=== PATIENT | male | born 1950 | race Caucasian/White ===

== ENCOUNTER 2017-09-01 18:13 | Inpatient (IN) | payer MEDICARE, BC ==
[2017-09-01 18:41] LABS: Hematocrit 46.9 % (42.0-52.0); Mean Platelet Volume 6.6 fL (7.4-10.4); White Blood Cell (WBC) Count 5.1 thou/uL (4.8-10.8)
[2017-09-01 18:58] LABS: Band 2 % (5-11); Neutrophil 71 % (42-75)
[2017-09-01 19:01] LABS: ALT (SGPT) 16 U/L (8-55); AST (SGOT) 16 U/L (5-34); Alkaline Phosphatase 91 U/L (40-150); Anion Gap 16 mmol/L (10-20); BUN (Urea Nitrogen) 19 mg/dL (8.4-25.7); Bilirubin, Total 0.7 mg/dL (0.2-1.2); Calc. Creatinine Clearance 0 mL/min (70-130); Calcium 9.8 mg/dL (7.8-10.44); Carbon Dioxide 23 mmol/L (23-31); Chloride 100 mmol/L (98-107); Estimated GFR-MDRD 45; Globulin 3.8 g/dL (2.4-3.5); Lipase Less than 4 U/L (8-78); Protein, Total 8.3 g/dL (5.8-8.1)
[2017-09-01 19:05] LABS: Troponin I Less than 0.010 ng/mL (< 0.028)
--- NOTE | 2017-09-01 19:37 | CT ---
CT HEAD NONCONTRAST 09/01/17 HISTORY: Slurred speech. Left sided weakness. FINDINGS: No comparison. There is no evidence of acute intracranial hemorrhage or infarct. The ventricles appea r normal in size, shape and position. There is no mass effect or shift of midline structures. The vis ualized paranasal sinuses remain well aerated. IMPRESSION: No acute intracranial abnormalities are demonstrated on noncontrast CT head. Findings were called to Dr. Cummings in the emergency department at 1836 hours. Code CR POS: [facility]
[2017-09-01 19:51] LABS: Bilirubin Negative (Negative); Blood, Urine Negative (Negative); Glucose, Urine (Dipstick) >=1000 mg/dL (Negative); Ketone, Urine Trace mg/dL (Negative); Nitrite Negative (Negative); Protein, Urine (Dipstick) 30 mg/dL (Neg-Trace)
[2017-09-01 19:52] LABS: Bacteria/HPF None Seen HPF (None Seen); Hyaline Casts/LPF 0-3 HYALINE CAST LPF (0-3 Hyaline); RBC/HPF None Seen HPF (0-3); Squamous Epithelial 0-3 HPF (0-3); WBC/HPF None Seen HPF (0-3)
[2017-09-01 20:00] LABS: Amphetamine Not Detected (NotDetected); Methadone Not Detected (NotDetected); Methamphetamine Not Detected (NotDetected)
[2017-09-01] MEDS ORDERED: Ondansetron ODT 4 MG TAB SL PRN (23:07)
[2017-09-01] MEDS ORDERED: Ondansetron HCl/PF 4 MG/2 ML Vial IVP PRN (23:07)
[2017-09-01] MEDS ORDERED: Acetaminophen 325 MG TAB PO PRN ×2 (23:07→23:08)
[2017-09-01] MEDS ORDERED: Milk Of Magnesia 30 ML UDCUP PO PRN (23:08)
[2017-09-01] MEDS ORDERED: Enoxaparin Sodium 30 MG/0.3 ML SYRINGE SC SCH (23:08)
[2017-09-01] MEDS ORDERED: Dextrose 50% Abboject 50 ML SYRINGE SLOW IVP PRN (23:08)
[2017-09-01] MEDS ORDERED: Ondansetron ODT 4 MG TAB PO PRN (23:08)
[2017-09-01] MEDS ORDERED: Dextrose 5% in Water 1,000 ML IV PRN (23:08)
[2017-09-01] MEDS ORDERED: HYDROcodone/Acetaminophen 5/325 mg Tablet PO PRN (23:08)
[2017-09-01] MEDS ORDERED: hydrALAZINE 20 MG/ML VIAL SLOW IVP PRN (23:08)
[2017-09-01] MEDS ORDERED: HYDROcodone/Acetaminophen 10/325 mg Tablet PO PRN (23:08)
[2017-09-02] MEDS: HumaLOG 300 UNITS/3 ML VIAL SC PRN (00:03)
[2017-09-02 02:16] VITALS: BMI 19.1
--- NOTE | 2017-09-02 03:14 | HP ---
DATE OF ADMISSION: 09/01/2017 TIME OF SERVICE: 2130 hours. CHIEF COMPLAINT: I think I had a stroke. HISTORY OF PRESENT ILLNESS: Mr. Blakely is an interesting 67-year-old gentleman with a history of chronic pancreatitis, diabetes, and chronic kidney disease 3, although he does not know about the chronic kidney disease prior to today, who presents to the emergency department with complaints of acute onset of slurred speech, right lower facial numbness, left arm weakness or numbness without weakness and discoordination of his left leg. He states he felt off balance, but had no vertigo or lightheadedness. It is felt like his lower right face was swollen, although it was more numb and tingly. He had no visual changes, no chest pain, difficulty breathing, no headaches. He presented to the emergency department for evaluation, drove himself. On my arrival, he was markedly improved and now is completely resolved. Specifically, states that his right jaw felt swollen and tingly, left arm was numb and tingling, and left leg I felt like it was not getting good signals from the brain and how to move. In the emergency department, he was given aspirin 81 mg x4, CT scan of the head was done. Blood pressure initially recorded 211/100, though I was told that was inaccurate, but systolic pressure was repeated were in the 170s to 160s. The patient stated his blood pressure usually in the low normal range with a normal heart rate. Currently, 117/73 at the time of my evaluation. Symptoms have resolved, his blood pressure is improved. He had no other current complaints. PAST MEDICAL HISTORY: 1. Chronic pancreatitis since he was 5 years old. 2. He has developed diabetes mellitus type 2 due to inadequate glucose production. 3. Review of the chart shows increased creatinine with a GFR somewhere in the mid 40s which translates to CKD 3. PAST SURGICAL HISTORY: Include, 1. Pancreatic pseudocyst and stent placement. 2. Cholecystectomy. 3. Tonsillectomy and adenoidectomy remotely. HOME MEDICATIONS: 1. Ramipril 10 mg p.o. q.a.m. 2. Aspirin 81 mg p.o. q.a.m. 3. Prevacid 30 mg p.o. q.a.m. ALLERGIES: CAFFEINE, CHOCOLATE FLAVOR, CODEINE, COMPAZINE, ALCOHOL, METFORMIN, and ORANGE, PINEAPPLE JUICE. FAMILY HISTORY: Negative for clotting or bleeding disorder. No premature coronary artery disease, no early strokes. No immune problems. SOCIAL HISTORY: Negative for habits x3 now. He did have a past history of tobacco use. Denies alcohol. REVIEW OF SYSTEMS: A 10-point review of systems was performed, negative for all other systems except as stated per HPI. PHYSICAL EXAMINATION: VITAL SIGNS: Temperature 97.4, pulse 63, blood pressure 117/73, respiratory rate 16, satting 98% on room air. GENERAL: He is awake. He is alert. He is oriented x3. He is a thin white male, appears to be in no acute distress. HEENT: Normocephalic, atraumatic. Pupils equal, round, reactive to light bilaterally, mucous membranes moist. There are no visible lesions. No thrush. NECK: Supple with no lymphadenopathy, JVD, or thyromegaly. He has normal carotid upstrokes without bruits. LUNGS: Clear. There are no wheezes, no rales or rhonchi. No prolonged expiratory phase. Good air movement. Symmetrical chest excursion. CARDIOVASCULAR: Normal S1 and S2. No S3 or S4. He has a regular rhythm and a normal rate. No audible murmurs. ABDOMEN: Soft and is nontender, nondistended, no masses, no organomegaly. EXTREMITIES: No cyanosis, no clubbing. No edema with 2+ peripheral pulses in the dorsalis pedis, posterior tibial, and radial arteries bilaterally. SKIN: Warm, moist, and well-perfused. He had no rashes, no lesions. MUSCULOSKELETAL: Normal to inspection. His large joints appear normal with no inflammation and no palpable effusions. NEUROLOGIC: Cranial nerves II-XII are grossly intact. He has normal speech pattern. He has 5/5 strength in all of his extremities. He has no dysdiadochokinesia and good control of his motion. He has no focal neurologic deficits. LABORATORY DATA: CMP shows sodium of 135, potassium 4.0, chloride 100, bicarbonate 23, BUN 19, creatinine 1.54 with an MDRD calculated GFR of 45 and glucose of 304. Liver functions are normal. CBC showed a white count of 5.1, hemoglobin 15.9, hematocrit of 46.9, platelet count 147. CK-MB is 1.5, troponin I was less than 0.010. Lipase was less than 4. Urinalysis: Glucose greater than 1000 and UDS was negative. RADIOGRAPHIC STUDIES: Had a brain CT that was negative for acute intracranial abnormalities. ASSESSMENT AND PLAN: 1. Possible transient ischemic attack: The patient also had a hypertension on presentation and his high blood pressure improved, his symptoms went away. So it could be transient ischemic attack, but may be in hypertensive encephalopathy. We will continue with ramipril, we will have p.r.n. hydralazine in case of pressure less than 170. The symptoms have completely resolved at this point. We get an MRI/MRA of the brain and intracranial vessels. We will get a carotid Doppler of his neck arteries. We will get a morning fasting lipid profile. We will get PT, ST and OT to evaluate the patient. We will continue the patient on aspirin, but increase to 325 mg daily. All studies are negative, likely discharge with outpatient followup. 2. Diabetes mellitus type 2, uncontrolled. Certainly adult onset, but the patient may be more like a type 1. He was on metformin before because of stomach cramping. We use sliding scale insulin. I suspect the patient will need a basal bolus dosing of insulin. The patient is hesitant to start any insulins, but he is allowable for correction right now. We will check hemoglobin A1c with morning labs. 3. Chronic kidney disease, 3: Creatinine 1.5. In looking back all of his labs had about the same value. His MDRD calculated GFR is 45 right now which puts him in stage 3 chronic kidney disease. The patient is already on ramipril. I suspect this is due to hypertension and/or diabetes effects. 4. Hypertension: The patient's ramipril for blood pressure, currently 117/73. He was initially recorded in the 211, I was told this was not accurate, recorded supposedly a valid values showed a systolic in the 160s to 70s on presentation. We will watch closely. The patient was placed in observation on the stroke unit. We will get studies as above and if negative, he will be able to go home in the morning. MTDD
[2017-09-02 04:56] LABS: #Eosinphils 0.2 thou/uL (0.0-0.7); #Lymphocytes 1.5 thou/uL (1.20-3.40); #Monocytes 0.3 thou/uL (0.11-0.59); #Neutrophils 3.3 thou/uL (1.40-6.50); %Basophils 0.7 % (0.0-1.0); %Eosinophils 2.9 % (0.0-10.0); %Lymphocytes 27.8 % (21.0-51.0); %Monocytes 6.1 % (0.0-10.0); Hematocrit 40.8 % (42.0-52.0); Mean Platelet Volume 6.2 fL (7.4-10.4); Red Blood Cell (RBC) Count 4.05 mill/uL (4.70-6.10); White Blood Cell (WBC) Count 5.3 thou/uL (4.8-10.8)
[2017-09-02 05:03] LABS: Hemoglobin A1c 11.6 % (4.0-6.0)
[2017-09-02 05:18] LABS: Anion Gap 7 mmol/L (10-20); BUN (Urea Nitrogen) 23 mg/dL (8.4-25.7); Calc. Creatinine Clearance 65 mL/min (70-130); Carbon Dioxide 28 mmol/L (23-31); Chloride 106 mmol/L (98-107); Cholesterol 150 mg/dl (< 200 Desired); Estimated GFR-MDRD 83; LDL Cholesterol, Calculated 90 mg/dL
--- NOTE | 2017-09-02 08:40 | ULT ---
BILATERAL CAROTID DUPLEX ULTRASOUND WITH SPECTRAL ANALYSIS AND COLOR FLOW EVALUATION: Date: 09/02/17 HISTORY: TIA. FINDINGS: Cerda scale, color flow, Doppler evaluation, and spectral analysis of the bilateral carotid arteries i s performed with 2D imaging. There is irregular scattered atherosclerotic plaque seen within the region of the right carotid bulb and proximal right internal carotid artery. No significant atherosclerotic plaque is seen in the left internal carotid artery. There is moderate (50-69%) stenosis involving the right internal carotid artery based on elevated pea k systolic velocity of 143.1 cm/second. The right ICA/CCA ratio is 1.5. There is less than 50% maximal stenosis in the left internal carotid artery based on a peak systolic velocity of 72.9 cm/second and an ICA/CCA ratio of 0.66. Antegrade flow is demonstrated in vertebral arteries bilaterally. IMPRESSION: 1. Moderate (50-69%) stenosis involving the right internal carotid artery. 2. No hemodynamically significant stenosis involving the left internal carotid artery. POS: [facility]
[2017-09-02] MEDS ORDERED: Ramipril 5 MG CAP PO SCH (09:00)
[2017-09-02] MEDS: Famotidine 20 MG TAB PO SCH (09:17)
[2017-09-02] MEDS: Aspirin 325 MG TAB PO SCH (09:17)
[2017-09-02] MEDS ORDERED: Ondansetron HCl/PF 4 MG/2 ML Vial SLOW IVP PRN (10:00)
--- NOTE | 2017-09-02 10:05 | PDOC.PN ---
- Subjective Encounter Start Date: 09/02/17 Encounter Start Time: 10:03 Subjective: neuro symptoms resolved, now with nausea, vomiting - Objective Resuscitation Status: Resuscitation Status FULL:Full Resuscitation MAR Reviewed: Yes Vital Signs & Weight: Vital Signs (12 hours) Temp Pulse Resp BP BP Pulse Ox 09/02/17 09:16 106/62 09/02/17 09:00 97.5 F L 63 15 09/02/17 08:56 97.5 F L 63 15 139/83 99 09/02/17 05:44 106/62 09/02/17 04:17 97.6 F 56 L 16 105/65 97 09/01/17 23:08 97.9 F 70 16 164/100 H 99 09/01/17 22:41 97.9 F 70 16 Weight Weight 126 lb 12.8 oz I&O: 09/01/17 09/02/17 09/03/17 06:59 06:59 06:59 Intake Total 240 Output Total 300 Balance -60 Result Diagrams: 09/02/17 04:23 09/02/17 04:23 Additional Labs: Accuchecks 09/02/17 09/01/17 06:10 23:56 POC Glucose 166 H 309 H Phys Exam - Physical Examination Constitutional: NAD Neck: no JVD Respiratory: clear to auscultation bilateral Cardiovascular: RRR, no significant murmur Gastrointestinal: soft, non-tender, positive bowel sounds Musculoskeletal: no edema Neurological: non-focal Dx/Plan (1) TIA (transient ischemic attack) Status: Acute (2) DM type 2 (diabetes mellitus, type 2) Status: Chronic Qualifiers: Diabetes mellitus complication status: without complication (3) Nausea & vomiting Code(s): R11.2 - NAUSEA WITH VOMITING, UNSPECIFIED Status: Acute Qualifiers: Vomiting type: unspecified Vomiting Intractability: intractable Qualified Code(s): R11.2 - Nausea with vomiting, unspecified (4) Chronic pancreatitis Code(s): K86.1 - OTHER CHRONIC PANCREATITIS Status: Acute - Plan phenergan iv for nausea, no improvement with zofran -: await neuro [id number] * .
[2017-09-02] MEDS: Promethazine HCl 25 MG/ML VIAL IM/IV PRN (10:32)
--- NOTE | 2017-09-02 16:49 | PDOC.EVN ---
Event Note - Event Note Event Note: MRI pos for infarct. neuro consult. PT/OT etc
--- NOTE | 2017-09-02 20:38 | MRI ---
BRAIN MRI WITHOUT CONTRAST: Date: 09/02/17 HISTORY: TIA. Right face, left arm and leg symptoms. Weakness and slurred speech. COMPARISON: None. TECHNIQUE: Brain MRI is performed without intravenous Gadolinium administration. Multisequential, multiplanar im aging is performed. FINDINGS: No hemorrhage on the axial gradient echo sequence. There is T2 and FLAIR hyperintensity involving the right guerra radiata extending into the right lent iform nucleus. There is associated restricted diffusion. Additional T2 and FLAIR white matter hyperin tensities are noted, without associated restricted diffusion. No midline shift. Basilar cisterns are patent. Brain volume is age-appropriate. Cortical saravia-white matter differentiation is preserved. Ventricles and sulci are patent and symmetric. Central arterial flow-voids are maintained. Calvarium has a normal marrow signal intensity. Midline brain parenchymal structures are unremarkable . Minimal mucosal thickening of the paranasal sinuses. Adequate mastoid air cell aeration. IMPRESSION: Right guerra radiata and right lentiform nucleus infarct. POS: [facility]
--- NOTE | 2017-09-02 20:43 | MRI ---
MR ANGIOGRAM OF THE BRAIN: Date: 09/02/17 HISTORY: Right-sided infarct. COMPARISON: None. TECHNIQUE: MR angiogram of the neck is performed in the axial plane utilizing 3D [id number] imaging. Maximum intensity projection images are submitted for interpretation. FINDINGS: There is symmetric flow-related in the distal cervical and intracranial internal carotid arteries. Anterior Circulation: There is symmetric flow-related signal in the A1 and M1 segments, as well as the proximal MCA branche s and proximal A2 segments. Posterior Circulation: The left vertebral artery is dominant. Left PICA artery origin appears to be unremarkable. Right PICA artery origin is difficult to appreciate. Both vertebral arteries supply a normal appearing basilar artery. Appropriate flow-related signal. The left P1 segment has appropriate flow-related signal. The right [employer] has a origin. No significant stenosis of the posterior circulation. IMPRESSION: Unremarkable MR angiogram of the [place]. POS: [facility]
--- NOTE | 2017-09-03 05:46 | CON ---
DATE OF CONSULTATION: 09/02/2017 REFERRING PROVIDER: Dr. Do Rodríguez. REASON FOR CONSULTATION: Acute stroke. HISTORY OF PRESENT ILLNESS: Mr. Blakely is a pleasant 67-year-old male who has been consul [facility] for evaluation of abnormal MRI of the brain. The patient reports that on yesterday around 6:00 p .m., he was getting ready to go to the [facility], he had ate his supper and after which he noticed a tin gling sensation in the left hand that was radiating up to the left shoulder. He also felt numbness i n that region. He tried to stand up and walk and noticed his left side was somewhat off balance. Th is prompted him to come to the emergency room. He reports that by the time that he is presented to [facility] ER, his symptoms had resolved. He did not have any headache, chest pain, palpitation, lightheaded ness, dizziness with this episode. He reports that after being admitted to the hospital, he did deve lop nausea, vomiting overnight. He states that he has a history of chronic pancreatitis and with his flare-up, he usually tends to have nausea and vomiting, which is not unusual for him. PAST MEDICAL HISTORY: Significant for chronic pancreatitis; diabetes; chronic kidney disease, stage 3. PAST SURGICAL HISTORY: Significant for pancreatic pseudocyst and stent placement, cholecystectomy, t onsillectomy and adenoidectomy. CURRENT MEDICATIONS: Please review MAR. ALLERGIES: Include CAFFEINE, ALCOHOL, CHOCOLATE FLAVOR, CODEINE, PINEAPPLE, PROCHLORPERAZINE. FAMILY HISTORY: Noncontributory. SOCIAL HISTORY: Denies smoking, alcohol use, or illicit drug use. REVIEW OF SYSTEMS: As mentioned above in the HPI, otherwise negative. PHYSICAL EXAMINATION: VITAL SIGNS: Blood pressure of 135/79, pulse of 54, temperature of 97.9, respirations of 16, O2 sats of 99% on room air. GENERAL: Well-developed, well-nourished male, in no apparent distress. RESPIRATORY: Clear to auscultation bilaterally. CARDIOVASCULAR: Regular rate and rhythm. NEUROLOGICAL: Mental status: The patient is awake, alert, oriented x3. Speech and language: Fluen t speech. Cranial nerves: Pupils are 3 mm and reactive. Visual genao are intact. External muscle s are intact. No nystagmus is noted. Face is symmetric. Tongue and uvula are midline. Motor exam showed normal tone and bulk with 5/5 strength in both upper and lower extremities. Sensory: Sensati on is intact and symmetric. Deep tendon reflexes 2+ reflexes in both upper and lower extremities. B abinski: Plantar responses flexion bilaterally. Coordination intact to [id number]-[id number] and finge r tapping bilaterally. LABORATORY DATA: Reviewed, which included CBC, BMP, hemoglobin A1c, urinalysis, urine drug screen, w hich is significant for hemoglobin 13.6, hematocrit of 40.8 with MCV of 101, glucose is 172 with hemo globin A1c of 11.6, otherwise unremarkable. IMAGING STUDIES: MRI brain without contrast was reviewed, which showed an acute ischemic infarct inv olving the right basal ganglia. IMPRESSION: 1. Acute right basal ganglia ischemic infarct. 2. Chronic pancreatitis. 3. Hypertension. ASSESSMENT AND PLAN: Mr. Blakely is a pleasant 67-year-old male who presented with the epi sode of left upper extremity tingling and difficulty with balance. His MRI does show an acute ischem ic infarct in the right basal ganglia. His carotid Dopplers also showed a right ICA stenosis with a 50% to 69% moderate stenosis. At this time, I would recommend increasing his aspirin to 325 mg daily for secondary stroke prevention. I would also recommend obtaining CT angiogram of the neck to [facility] evaluate the right ICA stenosis. If the stenosis is more than 60%, then I would recommend consult ing Cardiovascular Surgery for their opinion and recommendations. Continue supportive care. No furt her neurologic workup needed at this time. Thank you for your consultation.
[2017-09-03] MEDS: HumaLOG 300 UNITS/3 ML VIAL SC PRN ×4 (06:19→22:30)
[2017-09-03] MEDS ORDERED: ISOVUE-370 76%-LOCM 1 ML ONE (07:53)
[2017-09-03] MEDS: Aspirin 325 MG TAB PO SCH (09:13)
[2017-09-03] MEDS: Famotidine 20 MG TAB PO SCH (09:14)
[2017-09-03] MEDS: Ramipril 5 MG CAP PO SCH (09:15)
--- NOTE | 2017-09-03 10:03 | PDOC.PN ---
- Subjective Encounter Start Date: 09/03/17 Encounter Start Time: 10:01 Subjective: no weakness , etc - Objective MAR Reviewed: Yes Vital Signs & Weight: Vital Signs (12 hours) Temp Pulse Resp BP BP Pulse Ox 09/03/17 09:15 141/76 H 09/03/17 08:00 97.8 F 67 20 85/55 L 97 09/03/17 04:24 97.7 F 49 L 16 96/53 L 100 09/03/17 00:43 98.6 F 55 L 16 94/52 L 98 Weight Weight 130 lb 8 oz I&O: 09/02/17 09/03/17 09/04/17 06:59 06:59 06:59 Intake Total 240 Balance 240 Result Diagrams: 09/02/17 04:23 09/02/17 04:23 Additional Labs: Accuchecks 09/03/17 09/02/17 09/02/17 05:44 19:59 16:55 POC Glucose 202 H 265 H 172 H Phys Exam - Physical Examination Constitutional: NAD Neck: no JVD Respiratory: clear to auscultation bilateral Cardiovascular: RRR, no significant murmur Gastrointestinal: soft, non-tender, positive bowel sounds Musculoskeletal: no edema Neurological: non-focal, normal sensation, moves all 4 limbs Dx/Plan (1) TIA (transient ischemic attack) Status: Resolved (2) DM type 2 (diabetes mellitus, type 2) Status: Chronic Qualifiers: Diabetes mellitus complication status: without complication (3) Nausea & vomiting Code(s): R11.2 - NAUSEA WITH VOMITING, UNSPECIFIED Status: Acute Qualifiers: Vomiting type: unspecified Vomiting Intractability: intractable Qualified Code(s): R11.2 - Nausea with vomiting, unspecified (4) Chronic pancreatitis Code(s): K86.1 - OTHER CHRONIC PANCREATITIS Status: Acute (5) CVA (cerebral vascular accident) Code(s): I63.9 - CEREBRAL INFARCTION, UNSPECIFIED Status: Acute Qualifiers: CVA mechanism: thrombosis Laterality of affected vessel: unspecified (6) Carotid stenosis, right Code(s): I65.21 - OCCLUSION AND STENOSIS OF RIGHT CAROTID ARTERY Status: Acute - Plan CTA neck pending, cont ASA -: CTA neck, 50% stenosis R ICA * .
[2017-09-03] MEDS: Promethazine HCl 25 MG/ML VIAL IM/IV PRN (10:48)
--- NOTE | 2017-09-03 15:27 | CT ---
CT ANGIO NECK WITH CONTRAST: Technique: Multiple axial tomograms were obtained through the neck with arterial phase enhancement fo [facility] ([facility]) express angio protocol with multiplanar reconstruction and 3D post processing. History: Evaluate for right ICA stenosis. Recent ultrasound exam of 09-02-[address] enosis in the right ICA. FINDINGS: No evidence of stenosis at the origin of the arch vessels. The left common carotid are is unremarkable. The left carotid bifurcation is unremarkable. The left ICA is unremarkable throughout its course. Right common carotid is unremarkable. There is mild atherosclerotic change at the right bulb and proximal ICA. There is slight kink at the origin of the right ICA and there is focal stenosis at the origin of the right ICA. The diameter of s tenosis according to NASCET criteria is estimated at 50% diameter stenosis at the origin of the right ICA. The ICA above the origin is unremarkable. Vertebral arteries are patent and unremarkable. Visualized basilar artery is small in caliber but is patent. No soft tissue abnormality identified. IMPRESSION: 1. There is hemodynamically significant stenosis at the origin of the right internal carotid artery e stimated at approximately 50% diameter stenosis by NASCET criteria. POS: [facility]
[2017-09-03] MEDS ORDERED: Atorvastatin Calcium 10 MG TAB PO SCH (21:00)
[2017-09-04] MEDS: Promethazine HCl 25 MG/ML VIAL IM/IV PRN (00:29)
[2017-09-04] MEDS: HumaLOG 300 UNITS/3 ML VIAL SC PRN (06:34)
[2017-09-04 07:50] VITALS: BP 113/77; TEMP 98.3
[2017-09-04] MEDS: Ramipril 5 MG CAP PO SCH (09:00)
[2017-09-04] MEDS: Aspirin 325 MG TAB PO SCH (09:00)
[2017-09-04] MEDS: Famotidine 20 MG TAB PO SCH (09:00)
--- NOTE | 2017-09-04 09:10 | DIS ---
TRANSFER OF CARE NOTE DATE OF DISCHARGE: 09/04/2017 DISPOSITION: Discharged home. PRIMARY CARE PROVIDER: Dr. Stephanie Arceo FINAL DIAGNOSES: 1. Cerebral infarction with no residual. 2. Diabetes mellitus type 2. 3. Chronic kidney disease stage 3. 4. History of chronic pancreatitis. 5. Nausea and vomiting. 6. Stenosis, right internal carotid artery. DISCHARGE MEDICATIONS: Ramipril 10 mg a day, Prevacid 30 mg a day, aspirin 325 mg a day, Lipitor 10 mg a day. ALLERGIES: ALCOHOL, CAFFEINE, CHOCOLATE, CODEINE, PINEAPPLE, COMPAZINE. PENDING AT THE TIME OF DISCHARGE: Nothing. CODE STATUS: FULL. HOSPITAL COURSE: The patient admitted to the Hospitalist through [facility] wit h "I think I had a stroke". Complaints of slurred speech, right facial numbness, left arm weakness, all resolved rapidly. Neurological exam was rapidly intact. A brain CT was done which showed no acu te intracranial abnormality. Carotid ultrasound showed 50-70% stenosis. Brain MRI showed no [place] abnormality. Brain MRI showed a right guerra radiata and left lentiform nucleus infarct. The patient was started on aspirin and statins. A CT angiogram revealed 50% stenosis in the right in ternal carotid artery. The patient did well with PT, Speech Therapy O2, Occupational Therapy. At th is time, he is being discharged home as he is fully functional. He has been told to see his PCP in 1 week. He was seen in consultation by Dr. Mili Jarquin. He is being discharged on a heart healthy t, medications, as stated. He will need serial ultrasounds of his right internal carotid artery. Hi s laboratory during his stay; CBC was grossly normal. His initial creatinine was 1.54 came down to 0 .91. Cholesterol studies were really pretty unremarkable. Cholesterol 150, LDL 90, HDL low at 30 an d as stated before, he has been started on a statin.
== END 2017-09-04 10:23 | disposition home or self-care (01) | DRG 65 ==
LOC: ERS 18:13 → 2SE 21:01 → OBSVTOIN 09-02 16:45
PROVIDERS: ADMIT Internal Medicine Infectious Disease; ATTEND Internal Medicine Infectious Disease
DX: I63.9 Cerebral infarction, unspecified (principal); K86.1 Other chronic pancreatitis; E11.22 Type 2 diabetes mellitus with diabetic chronic kidney disease; N18.3 Chronic kidney disease, stage 3 (moderate); I12.9 Hypertensive chronic kidney disease with stage 1 through stage 4 chronic kidney disease, or unspecified chronic kidney disease; I65.21 Occlusion and stenosis of right carotid artery; G83.24 Monoplegia of upper limb affecting left nondominant side; R47.81 Slurred speech; R29.810 Facial weakness; R11.2 Nausea with vomiting, unspecified; Z87.891 Personal history of nicotine dependence; E11.65 Type 2 diabetes mellitus with hyperglycemia
CPT/HCPCS: 36415; 36416; 70450; 70498; 70544; 70551; 80048; 80053; 80061; 80306; 81003; 81015; 82553; 83036; 83690; 84484; 85025; 93005; 93880; 94760; A4216; G8978-GP-CK; G8979-GP-CK; G8980-GP-CK; G8987-GO-CH; G8988-GO-CH; G8989-GO-CH; G9162-GN-CH; G9163-GN-CH; J1650; J2405; J2550; Q0162

== ENCOUNTER 2017-09-23 09:52 | Emergency (ER) | payer MEDICARE, BC ==
[2017-09-23 10:56] LABS: #Eosinphils 0.1 thou/uL (0.0-0.7); #Lymphocytes 0.5 thou/uL (1.20-3.40); #Monocytes 0.2 thou/uL (0.11-0.59); #Neutrophils 2.2 thou/uL (1.40-6.50); %Basophils 0.8 % (0.0-1.0); %Eosinophils 3.2 % (0.0-10.0); %Lymphocytes 16.9 % (21.0-51.0); %Monocytes 6.4 % (0.0-10.0); Hematocrit 45.2 % (42.0-52.0); Mean Platelet Volume 6.2 fL (7.4-10.4)
[2017-09-23 11:21] LABS: ALT (SGPT) 49 U/L (8-55); AST (SGOT) 70 U/L (5-34); Alkaline Phosphatase 108 U/L (40-150); Anion Gap 14 mmol/L (10-20); BUN (Urea Nitrogen) 13 mg/dL (8.4-25.7); Bilirubin, Total 0.9 mg/dL (0.2-1.2); Calc. Creatinine Clearance 0 mL/min (70-130); Calcium 9.1 mg/dL (7.8-10.44); Carbon Dioxide 24 mmol/L (23-31); Chloride 103 mmol/L (98-107); Estimated GFR-MDRD 82; Globulin 3.6 g/dL (2.4-3.5); Lipase Less than 4 U/L (8-78); Protein, Total 7.6 g/dL (5.8-8.1)
[2017-09-23] MEDS ORDERED: Morphine 4 MG/ML VIAL ONE ×2 (12:19→12:23)
[2017-09-23] MEDS ORDERED: Ondansetron HCl/PF 4 MG/2 ML Vial ONE ×3 (12:19→13:45)
--- NOTE | 2017-09-23 14:10 | CT ---
ABDOMEN CT WITH CONTRAST PELVIC CT WITH CONTRAST: Date: 09/23/17 HISTORY: Abdominal pain. Symptoms began on Saturday night. History of hernia. COMPARISON: None. TECHNIQUE: An abdomen and pelvic CT are performed with IV contrast. Enteric contrast was not administered. Coron al reformatted images are submitted for interpretation. FINDINGS:: ABDOMEN CT: Chronic changes in lung bases. Heart size is within normal limits. No pericardial effusion. The desce nding thoracic aorta and abdominal aorta have an overall normal caliber. No periaortic fat stranding. Intra and extrahepatic portal vein is patent. Gallbladder is surgically absent. The liver, spleen, pancreas, and adrenal glands have appropriate enhancement and attenuation. No gastrohepatic, retrocrural, or periportal lymphadenopathy. No mesenteric mass, free air, or free fluid. There are some nonspecific, mildly enlarged central abdominal mesenteric lymph nodes. Width Stripper lymph node measures 1.2 x 0.9 cm. Symmetric enhancement of the kidneys. Bilaterally, no obstructive uropathy. Limited evaluation of the alimentary canal due to the absence of oral contrast administration. No evidence of small bowel obstruction. Ileocecal junction is normal. Appendix is not appreciated. No inflammation of the cecal apex. Fecal material in a nondistended, nondilated colon. Occasional diver ticulum in sigmoid colon. No diverticulitis. PELVICT CT: No mass, lymphadenopathy, free air, or free fluid. Urinary bladder is unremarkable. Left inguinal hernia containing mesenteric fat is noted. No lytic or blastic lesions in the osseous structures. IMPRESSION: 1. No acute abnormal in the abdomen or pelvis. No evidence of bowel obstruction. 2. Nonspecific enlarged mesenteric lymph nodes. Correlate for mesenteric lymphadenitis. 3. Diverticulosis in the sigmoid colon, without evidence of diverticulitis. POS: [facility]
[2017-09-23] MEDS ORDERED: Ondansetron ODT 4 MG TAB ONE (16:14)
[2017-09-23] MEDS ORDERED: ISOVUE-370 76%-LOCM 1 ML ONE (17:06)
== END 2017-09-23 17:07 | disposition home or self-care (01) ==
LOC: ERS 09:52
DX: R10.13 Epigastric pain (principal); E11.9 Type 2 diabetes mellitus without complications; Z86.73 Personal history of transient ischemic attack (TIA), and cerebral infarction without residual deficits; Z79.82 Long term (current) use of aspirin; Z79.899 Other long term (current) drug therapy
CPT/HCPCS: 36415; 36416; 74177; 80053; 83690; 85025; 94760; 96361; 96374; 96375; 96376; J2270; J2405; Q0162

== ENCOUNTER 2020-10-08 14:41 | Emergency (ER) | payer BC, MEDICARE ==
[2020-10-08] MEDS ORDERED: Morphine 4 MG/ML VIAL ONE ×2 (15:28→17:23)
[2020-10-08] MEDS ORDERED: Ondansetron PF 4 MG/2 ML Vial ONE (15:29)
[2020-10-08] MEDS ORDERED: Promethazine HCl 25 MG/ML VIAL ONE ×2 (15:29→17:23)
[2020-10-08 15:33] LABS: #Eosinphils 0.2 thou/uL (0.0-0.7); #Lymphocytes 1.1 thou/uL (1.20-3.40); #Monocytes 0.3 thou/uL (0.11-0.59); #Neutrophils 3.3 thou/uL (1.40-6.50); %Basophils 0.8 % (0.0-1.0); %Eosinophils 4.1 % (0.0-10.0); %Lymphocytes 22.2 % (21.0-51.0); %Monocytes 5.9 % (0.0-10.0); Hemoglobin 15.6 g/dL (14.0-18.0); Mean Corpuscular HGB CONC 35.2 g/dL (32.0-36.0); Mean Corpuscular Hemoglobin 35.9 pg (27.0-31.0); Mean Platelet Volume 6.4 fL (7.4-10.4); Platelet Count 147 thou/uL (130-400); RBC Distribution Width 12.3 % (11.5-14.5); Red Blood Cell (RBC) Count 4.33 mill/uL (4.70-6.10); White Blood Cell (WBC) Count 4.9 thou/uL (4.8-10.8)
--- NOTE | 2020-10-08 15:35 | RAD ---
Chest one view HISTORY: Chest pain. FINDINGS: Cardiac silhouette is magnified by projection. Pulmonary vasculature is unremarkable. Mediastinum is midline. No confluent airspace consolidation or evidence of pneumothorax. Hemostasis c lips overlie the upper abdomen. IMPRESSION : No abnormalities are demonstrated.
[2020-10-08 15:56] LABS: ALT (SGPT) 15 U/L (8-55); AST (SGOT) 14 U/L (5-34); Alkaline Phosphatase 75 U/L (40-110); Anion Gap 17 mmol/L (10-20); BUN (Urea Nitrogen) 20 mg/dL (8.4-25.7); Bilirubin, Total 1.3 mg/dL (0.2-1.2); Calc. Creatinine Clearance 0 mL/min (70-130); Calcium 9.3 mg/dL (7.8-10.44); Carbon Dioxide 27 mmol/L (23-31); Chloride 99 mmol/L (98-107); Globulin 3.5 g/dL (2.4-3.5); Glucose 143 mg/dL (80-115); Lipase Less than 4 U/L (8-78); Potassium 4.2 mmol/L (3.5-5.1); Protein, Total 7.5 g/dL (5.8-8.1); Sodium 139 mmol/L (136-145)
== END 2020-10-08 19:45 | disposition home or self-care (01) ==
LOC: ERS 14:41
DX: K29.70 Gastritis, unspecified, without bleeding (principal); E11.9 Type 2 diabetes mellitus without complications; Z86.73 Personal history of transient ischemic attack (TIA), and cerebral infarction without residual deficits; Z86.19 Personal history of other infectious and parasitic diseases; Z87.19 Personal history of other diseases of the digestive system
CPT/HCPCS: 36415; 71045; 80053; 83690; 84484; 85025; 93005; 96365; 96366; 96375; 96376; J2270; J2405; J2550

== ENCOUNTER 2020-10-18 15:13 | Inpatient (IN) | payer MEDICARE, BC ==
[~2020-10-18 15:13] MED LIST: Iopamidol-370 76% 500 ML 1 ML ONE
[2020-10-18 15:50] LABS: #Eosinphils 0.2 thou/uL (0.0-0.7); #Monocytes 0.3 thou/uL (0.11-0.59); #Neutrophils 4.3 thou/uL (1.40-6.50); %Basophils 0.7 % (0.0-1.0); %Eosinophils 3.4 % (0.0-10.0); %Monocytes 4.6 % (0.0-10.0); %Neutrophils 74.3 % (42.0-75.0); Hemoglobin 14.9 g/dL (14.0-18.0); Mean Corpuscular HGB CONC 35.1 g/dL (32.0-36.0); Mean Corpuscular Hemoglobin 35.5 pg (27.0-31.0); Mean Platelet Volume 6.6 fL (7.4-10.4); Platelet Count 162 thou/uL (130-400); RBC Distribution Width 12.1 % (11.5-14.5); Red Blood Cell (RBC) Count 4.19 mill/uL (4.70-6.10); White Blood Cell (WBC) Count 5.8 thou/uL (4.8-10.8)
[2020-10-18 16:16] LABS: ALT (SGPT) 21 U/L (8-55); AST (SGOT) 20 U/L (5-34); Albumin 4.1 g/dL (3.4-4.8); Alkaline Phosphatase 77 U/L (40-110); Anion Gap 15 mmol/L (10-20); BUN (Urea Nitrogen) 19 mg/dL (8.4-25.7); Bilirubin, Total 1.1 mg/dL (0.2-1.2); Calc. Creatinine Clearance 0 mL/min (70-130); Calcium 9.2 mg/dL (7.8-10.44); Carbon Dioxide 29 mmol/L (23-31); Chloride 98 mmol/L (98-107); Globulin 3.4 g/dL (2.4-3.5); Glucose 219 mg/dL (80-115); Lipase Less than 4 U/L (8-78); Potassium 4.7 mmol/L (3.5-5.1); Protein, Total 7.5 g/dL (5.8-8.1); Sodium 137 mmol/L (136-145)
[2020-10-18] MEDS ORDERED: Morphine 4 MG/ML VIAL ONE (17:10)
[2020-10-18] MEDS ORDERED: Ondansetron PF 4 MG/2 ML Vial ONE (17:10)
--- NOTE | 2020-10-18 17:12 | CT ---
CT ABDOMEN WITH CONTRAST CT PELVIS WITH CONTRAST: DATE: 10/18/2020 HISTORY: 70-year-old male with history of diverticulitis, pancreatitis, and gastritis, presents with epigastri c pain COMPARISON: 09/23/2017 TECHNIQUE: IV injection of iodinated contrast media: administered. Oral contrast media:Administered FINDINGS: Gallbladder: Surgically absent. Clips in fossa. Spleen: 13 x 7.2 cm. Pancreas: Atrophic, then. Abdominal aorta: Atherosclerosis, without aneurysm. Kidneys: Normal. Adrenals: Normal Appendix: Not visualized Prostate: Enlarged. Urinary bladder: Diffuse mural thickening, greater than on prior study, perhaps due to incomplete dis tention, or due to chronic bladder outlet obstruction. Small intestine: No dilation. Large intestine: No signs of diverticulitis or colitis. Free fluid: None Free air: None Lung bases: No consolidation or pleural effusion. The previously demonstrated mildly enlarged mesenteric lymph nodes, are smaller on the current CT. Otherwise no other significant interval change. IMPRESSION: 1) no acute findings 2) status post cholecystectomy and possible appendectomy. 3) enlarged prostate, and possible chronic bladder outlet obstruction changes of the urinary bladder.
[2020-10-18] MEDS ORDERED: Promethazine HCl 25 MG/ML VIAL ONE (19:12)
[2020-10-18] MEDS ORDERED: Pantoprazole 80 MG, Admixture Fee 1 EACH in Sodium Chloride 0.9% 100 ML IVPB SCH (19:15)
--- NOTE | 2020-10-18 19:52 | HP ---
CHIEF COMPLAINT: Intractable nausea, vomiting since October 07. HISTORY OF PRESENT ILLNESS: This is a 70-year-old male with chronic pancreatitis since his childhood, presenting with nausea, vomiting of 12-day duration. At least 3 or 4 times a day, he is having emesis, but today he noticed this trace amount of blood. Mostly epigastric pain also associated with that. The patient has a history of H pylori that was diagnosed years ago. He is supposed to follow up with Dr. Wells, master ship in the clinic, but he is not able to wait until then for next week. He did not notice any blood in the urine or stool. The emesis is mostly semi-solid. Anything he takes p.o., shortly after that he throws up. His hemoglobin is 14.9. His lipase was less than 4, blood glucose 219. Rest of the CMP panel in the normal range. CT abdomen, no acute findings status post cholecystectomy and appendectomy. The patient did not have any fever. He lives alone. No sick exposure. REVIEW OF SYSTEMS: 13-point review of systems reviewed with the patient. Pertinents addressed in the History of Present Illness. Rest are negative including no chest pain, productive cough. No hematuria, dysuria, or hematochezia. Denies any headache, blurriness, tingling, numbness in his extremities. ALLERGIES: HE IS ALLERGIC TO CAFFEINE, CODEINE, PINEAPPLE. HOME MEDICATIONS: 1. Ramipril 10 mg daily. 2. Atorvastatin 10 mg. 3. Aspirin 325 mg. 4. Prevacid 30 mg. PAST MEDICAL HISTORY: 1. Chronic pancreatitis. 2. History of H pylori. 3. BPH. SOCIAL HISTORY: Does not smoke or drink or use illicit drugs. He lives alone. FAMILY HISTORY: Noncontributory. PHYSICAL EXAMINATION: VITAL SIGNS: He is afebrile. He has accelerated hypertension. GENERAL: He is looking distressed at this point. HEART: He is tachycardic with regular rhythm. LUNGS: Clear to auscultation bilaterally. No wheezing, rales, or rhonchi. ABDOMEN: Has some mild epigastric tenderness. Bowel sounds are little diminished, but no guarding or rigidity appreciated. EXTREMITIES: Without any pitting edema and rash. PSYCHOLOGICAL: He has appropriate mood and affect. NEUROLOGIC: No focal deficits. LABORATORY DATA: Significant for lipase less than 4, blood glucose 219. White count is 5.8, hemoglobin 14.9, platelet 162. CT abdomen; status post cholecystectomy, appendectomy. IMPRESSION AND PLAN: This is a 70-year-old male with a history of chronic pancreatitis, presenting with intractable nausea, vomiting of 12-day duration. Admit him for supportive management with IV fluid, antiemetic, and analgesic. I did tariff counsel him on limited use of morphine. GI consult with Dr. Wells. Protonix IV daily. Accelerated hypertension. I would defer giving any p.o. blood pressure medication, put him on hydralazine IV until the blood pressure improved and his p.o. intake starts. Since the patient had a trace of hematemesis, I will refrain putting him on chemical anticoagulant. Routine labs. Job ID: [id number] [facility]
[2020-10-18 20:52] LABS: SARS-CoV-2 NAA Rapid Test Not Detected (NotDetected)
[2020-10-18] MEDS: hydrALAZINE 20 MG/ML VIAL SLOW IVP PRN (22:07)
[2020-10-18] MEDS: Ondansetron PF 4 MG/2 ML Vial IVP PRN (22:07)
[2020-10-18 22:30] VITALS: BMI 18.1
[2020-10-18] MEDS ORDERED: Sodium Chloride 0.9% 1,000 ML IV SCH (23:45)
[2020-10-18] MEDS ORDERED: Promethazine HCl 25 MG/ML VIAL SLOW IVP PRN (23:50)
[2020-10-19] MEDS ORDERED: Dextrose 50% Abboject 50 ML SYRINGE SLOW IVP PRN (00:47)
[2020-10-19] MEDS ORDERED: Dextrose 5% in Water 1,000 ML IV PRN (00:47)
[2020-10-19] MEDS: Ondansetron PF 4 MG/2 ML Vial IVP PRN ×2 (02:29→20:35)
[2020-10-19] MEDS: Pantoprazole 40 MG VIAL IVP SCH (08:43)
[2020-10-19] MEDS ORDERED: Loperamide HCl 2 MG CAP PO PRN (09:13)
[2020-10-19] MEDS ORDERED: Sodium Chloride 0.65% Nasal 44 ML BOT EA NARE PRN (09:13)
[2020-10-19] MEDS ORDERED: Senokot S 8.6-50 MG TAB PO PRN (09:13)
[2020-10-19] MEDS ORDERED: Bisacodyl 10 MG SUPP PR PRN (09:13)
[2020-10-19] MEDS ORDERED: Cepastat Lozenges 1 LOZ PO PRN (09:13)
[2020-10-19] MEDS ORDERED: Metoclopramide HCl 10 MG/2 ML VIAL IVP PRN (09:13)
[2020-10-19] MEDS ORDERED: Zolpidem Tartrate 5 MG TAB PO PRN (09:13)
[2020-10-19] MEDS ORDERED: Loratadine 10 MG TAB PO PRN (09:13)
[2020-10-19] MEDS ORDERED: Benzonatate 100 MG CAP PO PRN (09:13)
[2020-10-19] MEDS ORDERED: Calcium Carbonate 500 MG ChewTAB PO PRN (09:13)
[2020-10-19] MEDS ORDERED: GUAIFENESIN SF SOLN 200 MG/10 ML UDCUP PO PRN (09:13)
--- NOTE | 2020-10-19 11:31 | PDOC.HOSPP ---
- Subjective Encounter Date: 10/19/20 Encounter Time: 07:30 Subjective: Patient seen and examined bedside today, patient reports that he is not tolerating any p.o. intake, he has no abdominal pain, no fever, no chills, patient has a history of chronic pancreatitis but he does not feel that that t his is related with the chronic pancreatitis, he denies any hematemesis - Objective Vital Signs & Weight: Vital Signs (12 hours) Temp Pulse Resp BP Pulse Ox 10/19/20 08:01 97.9 F 58 L 18 130/76 98 10/19/20 04:00 98.6 F 58 L 14 102/58 L 98 10/18/20 23:42 97.9 F 52 L 14 159/78 H 98 Weight Weight 123 lb I&O: 10/18/20 10/19/20 10/20/20 06:59 06:59 06:59 Intake Total 100 Output Total 100 Balance 0 Result Diagrams: 10/18/20 15:40 10/18/20 15:40 Additional Labs: Accuchecks 10/19/20 10/18/20 05:51 23:37 POC Glucose 121 H 113 H Radiology Reviewed by me: Yes Hospitalist ROS - Review of Systems Eyes: denies: pain, vision change, conjunctivae inflammation, eyelid inflammation, redness, other ENT: denies: ear pain, ear discharge, nose pain, nose discharge, nose congestion, mouth pain, mouth swelling, throat pain, throat swelling, other Respiratory: denies: cough, dry, shortness of breath, hemoptysis, SOB with excertion, pleuritic pain, sputum, wheezing, other Cardiovascular: denies: chest pain, palpitations, orthopnea, paroxysmal noc. dyspnea, edema, light headedness, other Gastrointestinal: reports: nausea, vomiting. denies: abdominal pain, diarrhea, constipation, melena, hematochezia, other Genitourinary: denies: dysuria, frequency, incontinence, hematuria, retention, other Musculoskeletal: denies: neck pain, shoulder pain, arm pain, back pain, hand pain, leg pain, foot pain, other Skin: denies: rash, lesions, milady, bruising, other - Medication Medications: Active Medications Generic Name Dose Route Start Last Admin Trade Name Freq PRN Reason Stop Dose Admin Hydralazine HCl 10 mg 10/18/20 19:21 10/18/20 22:07 Hydralazine 20 Mg/Ml Vial SLOW IVP 10 mg Q4H PRN Administration SBP >150 Ondansetron HCl 4 mg 10/18/20 19:00 10/19/20 02:29 Ondansetron Pf 4 Mg/2 Ml Vial IVP 4 mg Q4H PRN Administration Nausea/Vomiting use 1st Pantoprazole Sodium 40 mg 10/19/20 09:00 10/19/20 08:43 Pantoprazole 40 Mg Vial IVP 40 mg DAILY SRUTHI Administration - Exam General Appearance: NAD, awake alert Eye: PERRL, anicteric sclera ENT: normocephalic atraumatic, no oropharyngeal lesions Neck: supple, symmetric, no JVD, no thyromegaly Heart: RRR, no murmur, no gallops, no rubs Respiratory: no wheezes, no rales, no ronchi Gastrointestinal: soft, non-tender, non-distended, normal bowel sounds Extremities: no cyanosis, no clubbing, no edema Skin: normal turgor, no lesions Neurological: no focal deficits Musculoskeletal: normal tone, normal strength Psychiatric: normal affect, normal behavior Hosp A/P (1) Intractable nausea and vomiting Code(s): R11.2 - NAUSEA WITH VOMITING, UNSPECIFIED Status: Acute (2) Chronic pancreatitis Code(s): K86.1 - OTHER CHRONIC PANCREATITIS Status: Chronic Qualifiers: Pancreatitis type: unspecified pancreatitis type Qualified Code(s): K86.1 - Other chronic pancreatitis (3) DM type 2 (diabetes mellitus, type 2) Status: Chronic Qualifiers: Diabetes mellitus complication status: without complication (4) Hypertension Code(s): I10 - ESSENTIAL (PRIMARY) HYPERTENSION Status: Chronic Qualifiers: Hypertension type: essential hypertension Qualified Code(s): I10 - Essential (primary) hypertension (5) Dyslipidemia Code(s): E78.5 - HYPERLIPIDEMIA, UNSPECIFIED Status: Chronic (6) Macrocytosis without anemia Code(s): D75.89 - OTHER SPECIFIED DISEASES OF BLOOD AND BLOOD-FORMING ORGANS Status: Chronic - Plan old records reviewed/req Start Ringer lactate Treat symptomatically for nausea and vomiting with Zofran and Reglan Check hemoglobin A1c Gastroenterology has been consulted Endoscopic evaluation will defer to them Start clear liquid diet
[2020-10-19] MEDS: Lactated Ringer's 1,000 ML IV SCH ×2 (12:06→22:39)
[2020-10-19 13:54] LABS: Hemoglobin A1c 8.1 % (4.0-6.0)
--- NOTE | 2020-10-19 16:22 | CON ---
DATE OF CONSULTATION: 10/19/2020 REASON FOR CONSULTATION: Intractable nausea and vomiting. CONSULTING PROVIDER: Dr. Ronald Quinn. 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 The patient states that he has been having intermittent episodes of nausea and vomiting ever since he was [age] years old, characterized as having approximately 2 to 3 episodes of increased nausea and vomiting per year with nausea and vomiting would last for approximately 1 to 2 days in duration. Sometimes this nausea and vomiting is associated with increased midepigastric/substernal chest pain which the patient relates to prior bouts of pancreatitis in the past. However, on this particular situation, the patient has been having increased nausea and vomiting for now 2 weeks with having approximately 2 to 8 discrete episodes of emesis per day with nonbloody emesis (emesis has been brown in coloration). This has been associated with increased midepigastric/substernal pain that is nonradiating, is a pressure type sensation, intermittent, and reaches a severity of 8/10. When compared to his prior bouts of pancreatitis in the past, he states this pain is somewhat different in terms of severity, but it is in similar location without any radiation to his back (the patient has experienced radiation of his pain to his back and right shoulder in the past). He has been having increased coughing and sneezing more recently, but has not had any associated fevers, chills, hematemesis, melena, hematochezia, dysphagia, odynophagia, diarrhea, constipation, or weight loss. With the significant nausea and vomiting that the patient was having and for an extended period of time and inability to tolerate any food stuffs, it then prompted him to come to the [facility] ER for further evaluation. Since being evaluated in the ER, he has been placed on aggressive antiemetic regimen and over the last 24 hours has not had any further episodes of nausea or vomiting. REVIEW OF SYSTEMS: A 10-category review of systems was obtained with all responses negative except for the pertinent positives as listed in HPI. PAST MEDICAL HISTORY: As per HPI. PAST SURGICAL HISTORY: Cholecystectomy, possible appendectomy. FAMILY HISTORY: States that his brother was diagnosed with pancreatitis at an early age as well. Otherwise, denies any GI malignancies. SOCIAL HISTORY: Denies any tobacco, alcohol, or illicit drug use. OUTPATIENT MEDICATIONS: Reviewed. INPATIENT MEDICATIONS: Reviewed. ALLERGIES: CAFFEINE, CODEINE, AND PINEAPPLE. PHYSICAL EXAMINATION: VITAL SIGNS: Temperature 97.8, pulse 67, blood pressure 116/68, respiratory rate 18, saturating 98% on room air. GENERAL: The patient was lying in bed, in no acute distress. Alert and oriented x4. HEENT: Normocephalic, atraumatic. NECK: Supple. No JVD or scleral icterus noted. CARDIOVASCULAR: Regular rate and rhythm with no discernible murmurs, gallops, or rubs. RESPIRATORY: Clear to auscultation bilaterally with no discernible wheezes or rales. ABDOMEN: Normoactive bowel sounds. Soft, nondistended. Tenderness to palpation in the epigastric and periumbilical regions. EXTREMITIES: No cyanosis, clubbing, or edema. LABORATORY DATA: CBC with a white blood cell count of 5.8, hemoglobin 14.9, hematocrit 42.4, platelets 162. Chemistry with a sodium of 137, potassium 4.7, chloride 98, CO2 of 29, BUN 19, creatinine 1.1, glucose 219. AST 20, ALT 21, alkaline phosphatase 77, total bilirubin 1.1. IMAGING DATA: CT of the abdomen/pelvis was obtained on October 18, 2020, which showed surgical change consistent with cholecystectomy and possible appendectomy. He did show evidence of an atrophic pancreas in addition to benign prostatic hyperplasia and diffuse mural thickening of the bladder concerning for inflammation or infection. ASSESSMENT AND PLAN: The patient is a 70-year-old male with past medical history of H pylori infection status post treatment with triple therapy, benign prostatic hypertrophy, diabetes, anxiety, B12 deficiency, gastroesophageal reflux disease, hypertension, chronic kidney disease, irritable bowel syndrome, cerebrovascular accident, diverticulitis, asthma, and chronic pancreatitis, presenting with increased epigastric pain, worsening nausea and vomiting, concerning for an acute on chronic pancreatitis episode. Epigastric pain. The patient is presenting with acute onset of midepigastric abdominal pain along with intractable nausea and vomiting has been present over the last 2 weeks, where the patient was having approximately 2 to 8 discrete episodes of nonbloody emesis per day. He does have a history of prior chronic pancreatitis, for which the patient was diagnosed as a kid and has extended into adulthood. With this chronic pancreatitis, the patient will have approximately 2 to 3 episodes per year, where he will have increased nausea and vomiting for 1 to 2 days and then resolve. However, currently, the patient had been unable to tolerate much in terms of oral food stuffs (either solid or liquid) for the last 2 weeks and when coupled with the increased midepigastric pain is concerning for chronic pancreatitis despite the fact that his CT scan does not show any peripancreatic inflammation nor is his lipase elevated to indicate an acute episode of pancreatitis. On reviewing the patient's chart or on review with the patient, he states that he has undergone multiple EGDs and ERCPs in the past for evaluation of his chronic pancreatitis with his last EGD performed around 10 years ago with unknown findings. At this time, his midepigastric abdominal pain seems most consistent with a chronic pancreatitis, which then can induce nausea and vomiting as the sequelae of the disease process. However, differential could include esophagitis, gastritis, GERD, peptic ulcer disease, chronic pancreatitis, urinary tract infection (less likely), celiac disease and/or GI neoplasm. RECOMMENDATIONS: 1. Would continue patient on clear liquid diet for today, but make the patient n.p.o. at midnight in anticipation of EGD tomorrow. 2. Would plan for EGD tomorrow morning for intraluminal evaluation of the upper GI tract. 3. Continue with aggressive antiemetic regimen as you are doing. 4. Would continue pantoprazole 40 mg IV daily. 5. I would order IgG4 subclass in addition to CFTR DNA analysis for possible etiology of chronic pancreatitis. 6. Would consider placing the patient on pancreatic enzyme supplementation for his abdominal pain/chronic pancreatitis. We will continue to follow. Please call with any questions. Job ID: [id number]
[2020-10-19] MEDS: Atorvastatin Calcium 10 MG TAB PO SCH (20:33)
[2020-10-19] MEDS ORDERED: FLU VACC QS2020-21(65YR UP)/PF 240 MCG/0.7 ML SYRINGE IM ONE (21:00)
[2020-10-19] MEDS: Morphine 2 MG/ML VIAL SLOW IVP PRN (22:39)
[2020-10-20] MEDS: Ondansetron PF 4 MG/2 ML Vial IVP PRN ×2 (05:22→22:57)
[2020-10-20 06:03] LABS: #Eosinphils 0.3 thou/uL (0.0-0.7); #Lymphocytes 1.6 thou/uL (1.20-3.40); #Monocytes 0.3 thou/uL (0.11-0.59); #Neutrophils 1.9 thou/uL (1.40-6.50); %Basophils 0.6 % (0.0-1.0); %Lymphocytes 38.6 % (21.0-51.0); %Monocytes 6.6 % (0.0-10.0); %Neutrophils 46.2 % (42.0-75.0); Hemoglobin 12.9 g/dL (14.0-18.0); Mean Corpuscular HGB CONC 35.5 g/dL (32.0-36.0); Mean Corpuscular Hemoglobin 35.8 pg (27.0-31.0); Mean Platelet Volume 6.2 fL (7.4-10.4); Platelet Count 148 thou/uL (130-400); RBC Distribution Width 11.9 % (11.5-14.5); White Blood Cell (WBC) Count 4.2 thou/uL (4.8-10.8)
[2020-10-20 06:29] LABS: Anion Gap 13 mmol/L (10-20); BUN (Urea Nitrogen) 17 mg/dL (8.4-25.7); Calc. Creatinine Clearance 63 mL/min (70-130); Calcium 8.2 mg/dL (7.8-10.44); Carbon Dioxide 25 mmol/L (23-31); Chloride 102 mmol/L (98-107); Glucose 93 mg/dL (80-115); Potassium 3.7 mmol/L (3.5-5.1); Sodium 136 mmol/L (136-145)
[2020-10-20] MEDS ORDERED: Famotidine/PF 20 mg/2ml Vial ONE (08:29)
[2020-10-20] MEDS ORDERED: Fentanyl 100 MCG/2 ML VIAL ONE (08:29)
[2020-10-20] MEDS: Ramipril 5 MG CAP PO SCH (10:06)
[2020-10-20] MEDS: Pantoprazole 40 MG VIAL IVP SCH (10:06)
[2020-10-20] MEDS: Lactated Ringer's 1,000 ML IV SCH ×2 (10:06→20:00)
--- NOTE | 2020-10-20 10:19 | PDOC.HOSPP ---
- Subjective Encounter Date: 10/20/20 Encounter Time: 07:45 Subjective: Patient seen and examined bedside today, patient underwent upper endoscopy, it was essentially unremarkable, biopsy was obtained, - Objective Vital Signs & Weight: Vital Signs (12 hours) Temp Pulse Resp BP BP Pulse Ox 10/20/20 10:06 160/79 H 10/20/20 09:35 97.1 F L 55 L 18 139/84 99 10/20/20 05:11 97.2 F L 53 L 20 135/74 98 10/19/20 23:52 97.8 F 54 L 18 145/79 H 97 Weight Admit Weight 123 lb Weight 123 lb I&O: 10/19/20 10/20/20 10/21/20 06:59 06:59 06:59 Intake Total 100 2800 Output Total 100 500 Balance 0 2300 Result Diagrams: 10/20/20 05:46 10/20/20 05:46 Additional Labs: Accuchecks 10/20/20 10/19/20 10/19/20 06:10 21:27 16:27 POC Glucose 94 156 H 95 10/19/20 11:47 POC Glucose 113 H Hospitalist ROS - Review of Systems Eyes: denies: pain, vision change, conjunctivae inflammation, eyelid inflammation, redness, other ENT: denies: ear pain, ear discharge, nose pain, nose discharge, nose carrie estion, mouth pain, mouth swelling, throat pain, throat swelling, other Respiratory: denies: cough, dry, shortness of breath, hemoptysis, SOB with excertion, pleuritic pain, sputum, wheezing, other Cardiovascular: denies: chest pain, palpitations, orthopnea, paroxysmal noc. dyspnea, edema, light headedness, other Gastrointestinal: reports: nausea, vomiting. denies: abdominal pain, diarrhea, constipation, melena, hematochezia, other Genitourinary: denies: dysuria, frequency, incontinence, hematuria, retention, other Musculoskeletal: denies: neck pain, shoulder pain, arm pain, back pain, hand pain, leg pain, foot pain, other - Medication Medications: Active Medications Generic Name Dose Route Start Last Admin Trade Name Freq PRN Reason Stop Dose Admin Atorvastatin Calcium 10 mg 10/19/20 21:00 10/19/20 20:33 Atorvastatin Calcium 10 Mg Tab PO Not Given HS SRUTHI Hydralazine HCl 10 mg 10/18/20 19:21 10/18/20 22:07 Hydralazine 20 Mg/Ml Vial SLOW IVP 10 mg Q4H PRN Administration SBP >150 Lactated Ringer's 1,000 mls @ 100 mls/hr 10/19/20 11:30 10/20/20 10:06 Lactated Ringer's IV 1,000 mls .Q10H SRUTHI Administration Morphine Sulfate 2 mg 10/18/20 19:01 10/19/20 22:39 Morphine 2 Mg/Ml Vial SLOW IVP 2 mg Q6H PRN Administration Chest Pain Ondansetron HCl 4 mg 10/18/20 19:00 10/20/20 05:22 Ondansetron Pf 4 Mg/2 Ml Vial IVP 4 mg Q4H PRN Administration Nausea/Vomiting use 1st Pantoprazole Sodium 40 mg 10/19/20 09:00 10/20/20 10:06 Pantoprazole 40 Mg Vial IVP 40 mg DAILY SRUTHI Administration Ramipril 10 mg 10/20/20 09:00 10/20/20 10:06 Ramipril 5 Mg Cap PO 10 mg DAILY SRUTHI Administration - Exam General Appearance: NAD, awake alert Eye: PERRL, anicteric sclera ENT: normocephalic atraumatic, no oropharyngeal lesions Neck: supple, symmetric, no JVD, no thyromegaly Heart: RRR, no murmur, no gallops, no rubs Respiratory: no wheezes, no rales, no ronchi Gastrointestinal: soft, non-tender, non-distended, normal bowel sounds Extremities: no cyanosis, no clubbing, no edema Skin: normal turgor, no lesions Neurological: no focal deficits Musculoskeletal: normal tone, normal strength Psychiatric: normal affect, normal behavior Hosp A/P (1) Intractable nausea and vomiting Code(s): R11.2 - NAUSEA WITH VOMITING, UNSPECIFIED Status: Acute (2) Chronic pancreatitis Code(s): K86.1 - OTHER CHRONIC PANCREATITIS Status: Chronic Qualifiers: Pancreatitis type: unspecified pancreatitis type Qualified Code(s): K86.1 - Other chronic pancreatitis (3) DM type 2 (diabetes mellitus, type 2) Status: Chronic Qualifiers: Diabetes mellitus complication status: without complication (4) Hypertension Code(s): I10 - ESSENTIAL (PRIMARY) HYPERTENSION Status: Chronic Qualifiers: Hypertension type: essential hypertension Qualified Code(s): I10 - Essential (primary) hypertension (5) Dyslipidemia Code(s): E78.5 - HYPERLIPIDEMIA, UNSPECIFIED Status: Chronic (6) Macrocytosis without anemia Code(s): D75.89 - OTHER SPECIFIED DISEASES OF BLOOD AND BLOOD-FORMING ORGANS Status: Chronic (7) Protein-calorie malnutrition, moderate Code(s): E44.0 - MODERATE PROTEIN-CALORIE MALNUTRITION Status: Chronic - Plan old records reviewed/req Continue IV fluid, Treat symptomatically for nausea and vomiting with Zofran and Reglan S/p EGD, no new finding, follow-up on pathology report for H. pylori MRCP ordered by gastroenterology today, Continue clear liquid diet and advance as tolerated, GI recommendation appreciated, will follow up on send out test result
[2020-10-20] MEDS ORDERED: Succinylcholine 200 MG/10 ml SYRINGE FS ONE (12:21)
[2020-10-20] MEDS ORDERED: Ondansetron PF 4 MG/2 ML Vial ONE (12:21)
[2020-10-20] MEDS ORDERED: Lidocaine 1% PF 5 ML VIAL ONE (12:21)
[2020-10-20] MEDS ORDERED: PROPOFOL 200 MG/20 ML VIAL ONE (12:21)
[2020-10-20] MEDS ORDERED: Glycopyrrolate 0.2 MG/ML 5 ML SYRINGE ONE (12:21)
[2020-10-20] MEDS ORDERED: PHENYLEPHRINE-NS 100 MCG/ML 10 ML SYRINGE ONE (12:21)
--- NOTE | 2020-10-20 14:49 | MRI ---
MRI OF THE ABDOMEN WITHOUT CONTRAST: 10/20/20 INDICATIONS: 70-year-old male with history of chronic pancreatitis and nausea and vomiting for several days. COMPARISON: Prior CT dated 10/18/20. FINDINGS: The gallbladder is surgically absent. The common bile duct measures up to 5.8 mm. No definite intralu scott stone is demonstrated within the limitations of the exam. Respiratory motion artifact slightly limits the degree of in plane resolution on the majority of the image series. The main pancreatic katja t at the level of the body measures approximately 4.5 mm. No definite visible focal lesion is evident within the pancreas. The visualized adrenal glands appear within normal limits. The spleen measures 12.9 cm. No free fluid is evident. No bone marrow signal abnormality is noted. IMPRESSION: 1. Postprocedural changes of prior cholecystectomy. 2. No visible intraluminal stone is evident within the common bile duct. 3. Nonspecific mild dilatation of the main pancreatic duct to the level of the distal pancreatic body. No focal pancreatic lesion is identified. This can be seen in patient's with chronic pancreat itis. 4. Spleen is upper limits of normal for size measuring 12.9 cm. POS: [facility]
[2020-10-20] MEDS: Atorvastatin Calcium 10 MG TAB PO SCH (20:00)
[2020-10-20] MEDS: HumaLOG 300 UNITS/3 ML VIAL SC PRN (21:03)
[2020-10-21] MEDS: Ondansetron PF 4 MG/2 ML Vial IVP PRN ×2 (02:50→20:19)
[2020-10-21] MEDS: Lactated Ringer's 1,000 ML IV SCH (05:24)
[2020-10-21 05:46] LABS: #Eosinphils 0.3 thou/uL (0.0-0.7); #Lymphocytes 1.2 thou/uL (1.20-3.40); #Monocytes 0.3 thou/uL (0.11-0.59); #Neutrophils 2.1 thou/uL (1.40-6.50); %Eosinophils 8.3 % (0.0-10.0); %Lymphocytes 30.5 % (21.0-51.0); %Monocytes 7.3 % (0.0-10.0); %Neutrophils 52.8 % (42.0-75.0); Hemoglobin 11.9 g/dL (14.0-18.0); Mean Corpuscular Hemoglobin 34.1 pg (27.0-31.0); Mean Platelet Volume 6.2 fL (7.4-10.4); Platelet Count 136 thou/uL (130-400); RBC Distribution Width 11.9 % (11.5-14.5); Red Blood Cell (RBC) Count 3.48 mill/uL (4.70-6.10)
[2020-10-21 06:03] LABS: Anion Gap 12 mmol/L (10-20); BUN (Urea Nitrogen) 10 mg/dL (8.4-25.7); Calc. Creatinine Clearance 66 mL/min (70-130); Calcium 8.1 mg/dL (7.8-10.44); Carbon Dioxide 29 mmol/L (23-31); Chloride 104 mmol/L (98-107); Glucose 101 mg/dL (80-115); Potassium 3.5 mmol/L (3.5-5.1); Sodium 141 mmol/L (136-145)
[2020-10-21] MEDS ORDERED: D5W-AA 4.25% with LYTES 1,000 ML IV SCH (08:30)
[2020-10-21] MEDS ORDERED: AA 4.25 %/CALCIUM/LYTES/D5W 2,000 ML IV SCH (08:45)
[2020-10-21] MEDS: Thiamine 100 MG TAB PO SCH (09:56)
[2020-10-21] MEDS: Folic Acid 1 MG TAB PO SCH (09:56)
[2020-10-21] MEDS: Cyanocobalamin (Vitamin B-12) 1,000 MCG TAB PO SCH (09:56)
[2020-10-21] MEDS: Pantoprazole 40 MG VIAL IVP SCH (09:57)
[2020-10-21] MEDS: Morphine 2 MG/ML VIAL SLOW IVP PRN (09:57)
[2020-10-21] MEDS: Ramipril 5 MG CAP PO SCH ×2 (09:57→12:00)
[2020-10-21] MEDS: Promethazine HCl 12.5 MG in Sodium Chloride 0.9% 50 ML IVPB PRN (10:02)
--- NOTE | 2020-10-21 10:35 | PDOC.HOSPP ---
- Subjective Encounter Date: 10/21/20 Encounter Time: 07:45 Subjective: Patient is still having nausea and vomiting, he is not tolerating any oral intake, he has vague abdominal discomfort, his MRCP was showing findings suggestive of chronic pancreatitis, - Objective Vital Signs & Weight: Vital Signs (12 hours) Temp Pulse Resp BP Pulse Ox 10/21/20 07:14 98 F 58 L 14 162/78 H 98 10/21/20 04:07 98.0 F 57 L 18 159/70 H 98 10/20/20 23:39 97.8 F 54 L 18 153/80 H 98 Weight Admit Weight 123 lb Weight 123 lb I&O: 10/20/20 10/21/20 10/22/20 06:59 06:59 06:59 Intake Total 2800 2540 Output Total 500 1800 Balance 2300 740 Result Diagrams: 10/21/20 05:31 10/21/20 05:31 Additional Labs: Accuchecks 10/21/20 10/20/20 06:12 20:50 POC Glucose 90 210 H Radiology Reviewed by me: Yes (MRCP reviewed) Hospitalist ROS - Review of Systems Eyes: denies: pain, vision change, conjunctivae inflammation, eyelid infl ammation, redness, other ENT: denies: ear pain, ear discharge, nose pain, nose discharge, nose congestion, mouth pain, mouth swelling, throat pain, throat swelling, other Respiratory: denies: cough, dry, shortness of breath, hemoptysis, SOB with exce rtion, pleuritic pain, sputum, wheezing, other Cardiovascular: denies: chest pain, palpitations, orthopnea, paroxysmal noc. dyspnea, edema, light headedness, other Gastrointestinal: reports: nausea, vomiting, abdominal pain. denies: diarrhea, constipation, melena, hematochezia, other Genitourinary: denies: dysuria, frequency, incontinence, hematuria, retention, other Musculoskeletal: denies: neck pain, shoulder pain, arm pain, back pain, hand pain, leg pain, foot pain, other Skin: denies: rash, lesions, milady, bruising, other - Medication Medications: Active Medications Generic Name Dose Route Start Last Admin Trade Name Freq PRN Reason Stop Dose Admin Cyanocobalamin 1,000 mcg 10/21/20 09:00 10/21/20 09:56 Cyanocobalamin (Vitamin B-12) 1,000 Mcg Tab PO Not Given DAILY [facility] Folic Acid 1 mg 10/21/20 09:00 10/21/20 09:56 Folic Acid 1 Mg Tab PO Not Given DAILY [facility] Hydralazine HCl 10 mg 10/18/20 19:21 10/18/20 22:07 Hydralazine 20 Mg/Ml Vial SLOW IVP 10 mg Q4H PRN Administration SBP >150 Promethazine HCl 12.5 mg/ 50.5 mls @ 202 mls/hr 10/21/20 09:05 10/21/20 10:02 Sodium Chloride IVPB 50.5 mls Q6H PRN Administration Nausea/Vomiting Insulin Human Lispro 0 units 10/19/20 00:47 10/20/20 21:03 Humalog 300 Units/3 Ml Vial SC 2 unit .BEDTIME SLIDING SC PRN Administration Bedtime Correctional Scale Morphine Sulfate 2 mg 10/18/20 19:01 10/21/20 09:57 Morphine 2 Mg/Ml Vial SLOW IVP 2 mg Q6H PRN Administration Chest Pain Ondansetron HCl 4 mg 10/18/20 19:00 10/21/20 02:50 Ondansetron Pf 4 Mg/2 Ml Vial IVP 4 mg Q4H PRN Administration Nausea/Vomiting use 1st Pantoprazole Sodium 40 mg 10/19/20 09:00 10/21/20 09:57 Pantoprazole 40 Mg Vial IVP 40 mg DAILY SRUTHI Administration Ramipril 10 mg 10/20/20 09:00 10/21/20 09:57 Ramipril 5 Mg Cap PO 10 mg DAILY SRUTHI Administration Thiamine HCl 100 mg 10/21/20 09:00 10/21/20 09:56 Thiamine 100 Mg Tab PO Not Given DAILY [facility] - Exam General Appearance: NAD, awake alert Eye: PERRL, anicteric sclera ENT: normocephalic atraumatic, no oropharyngeal lesions Neck: supple, symmetric, no JVD Heart: RRR, no murmur, no gallops, no rubs Respiratory: no wheezes, no rales, no ronchi Gastrointestinal: soft, no hepatomegaly, no splenomegaly, no guarding, no rigidity Gastrointestinal - other findings: Subjective tenderness noted, but no peritoneal sign Extremities: no cyanosis, no clubbing, no edema Skin: normal turgor, no lesions Neurological: no focal deficits Musculoskeletal: normal tone, normal strength, generalized weakness Psychiatric: normal affect, normal behavior, A&O x 3 Hosp A/P (1) Intractable nausea and vomiting Code(s): R11.2 - NAUSEA WITH VOMITING, UNSPECIFIED Status: Acute (2) Chronic pancreatitis Code(s): K86.1 - OTHER CHRONIC PANCREATITIS Status: Chronic Qualifiers: Pancreatitis type: unspecified pancreatitis type Qualified Code(s): K86.1 - Other chronic pancreatitis (3) DM type 2 (diabetes mellitus, type 2) Status: Chronic Qualifiers: Diabetes mellitus complication status: without complication (4) Hypertension Code(s): I10 - ESSENTIAL (PRIMARY) HYPERTENSION Status: Chronic Qualifiers: Hypertension type: essential hypertension Qualified Code(s): I10 - Essential (primary) hypertension (5) Dyslipidemia Code(s): E78.5 - HYPERLIPIDEMIA, UNSPECIFIED Status: Chronic (6) Macrocytosis without anemia Code(s): D75.89 - OTHER SPECIFIED DISEASES OF BLOOD AND BLOOD-FORMING ORGANS Status: Chronic (7) Protein-calorie malnutrition, moderate Code(s): E44.0 - MODERATE PROTEIN-CALORIE MALNUTRITION Status: Chronic - Plan old records reviewed/req, DVT proph w/lovenox As patient is still not tolerating any significant oral intake and he is at risk for nutritional derangement, will start PPN Today we will discontinue IV fluid and continue with the PPN only We will add Phenergan which works best for his nausea and vomiting Patient is s/p EGD and MRCP, At this point nothing obvious finding that can explain his nausea and vomiting other than chronic pancreatitis, patient will need symptomatic treatment until he gets better.
--- NOTE | 2020-10-21 19:25 | PRG ---
DATE OF SERVICE: 10/21/2020 SUBJECTIVE: Mr. Blakely started on some PPN as he was not eating well. Yesterday he states he ate pretty well, but this morning he was nauseated. He is on clear liquids, tolerating that today without vomiting. MEDICINES: 1. Clindamax. 2. Tessalon. 3. Dulcolax. 4. Tums. 5. Vitamin B. 6. Folvite. 7. . 8. Apresoline. 9. Insulin sliding scale. 10. P.r.n. Imodium. 11. Claritin p.r.n. 12. Morphine p.r.n. 13. Zofran p.r.n. 14. Protonix 40 IV daily. 15. Ramipril. 16. Thiamine. PHYSICAL EXAMINATION: VITAL SIGNS: Temperature is 98, pulse 58, blood pressure 151/75. GENERAL: The patient is resting comfortably, but he has no distress. ABDOMEN: Soft, nontender, and scaphoid. LABORATORY DATA: White count 4, hemoglobin 11.9, MCV 100, platelet count 136. GI pathology from stomach biopsy yesterday normal. ASSESSMENT: 1. Chronic pancreatitis. 2. Nausea and vomiting worsened. This was typical with his flares of chronic pancreatitis in the past. His MRCP did not show any pancreatic masses. 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 CA-19-9 is pending. Cystic fibrosis DNA pending. IgG subclass 4 is pending. 3. History of B12 deficiency. RECOMMENDATIONS: Advance diet. I explained to him we need to get him out of the hospital over some pancreatic enzymes. We will check his B12 and we can send him to [place] in elective outpatient setting to see if his interventional radiologist pancreatic duct stent. In light of COVID situation in [place] now, we could be able to get him transferred as an inpatient. Going home on TPN is not a good option. Job ID: [id number]
[2020-10-21] MEDS ORDERED: Atorvastatin Calcium 10 MG TAB PO SCH (21:00)
[2020-10-21] MEDS: HumaLOG 300 UNITS/3 ML VIAL SC PRN (21:48)
[2020-10-22] MEDS: HumaLOG 300 UNITS/3 ML VIAL SC PRN ×3 (05:44→22:05)
[2020-10-22 06:06] LABS: #Basophils 0.1 thou/uL (0.0-0.2); #Eosinphils 0.3 thou/uL (0.0-0.7); #Lymphocytes 1.2 thou/uL (1.20-3.40); #Monocytes 0.3 thou/uL (0.11-0.59); #Neutrophils 2.3 thou/uL (1.40-6.50); %Basophils 1.7 % (0.0-1.0); %Lymphocytes 28.6 % (21.0-51.0); %Monocytes 6.2 % (0.0-10.0); %Neutrophils 56.5 % (42.0-75.0); Hemoglobin 11.8 g/dL (14.0-18.0); Mean Corpuscular HGB CONC 35.2 g/dL (32.0-36.0); Mean Corpuscular Hemoglobin 35.3 pg (27.0-31.0); Mean Platelet Volume 6.4 fL (7.4-10.4); Platelet Count 129 thou/uL (130-400); RBC Distribution Width 11.8 % (11.5-14.5); Red Blood Cell (RBC) Count 3.35 mill/uL (4.70-6.10)
[2020-10-22 06:29] LABS: Anion Gap 13 mmol/L (10-20); BUN (Urea Nitrogen) 17 mg/dL (8.4-25.7); Calc. Creatinine Clearance 66 mL/min (70-130); Calcium 8.1 mg/dL (7.8-10.44); Carbon Dioxide 27 mmol/L (23-31); Chloride 101 mmol/L (98-107); Glucose 175 mg/dL (80-115); Potassium 3.9 mmol/L (3.5-5.1); Sodium 137 mmol/L (136-145)
[2020-10-22] MEDS: Pantoprazole 40 MG VIAL IVP SCH (07:25)
[2020-10-22] MEDS: Promethazine HCl 12.5 MG in Sodium Chloride 0.9% 50 ML IVPB PRN ×2 (07:25→21:54)
[2020-10-22] MEDS: Cyanocobalamin (Vitamin B-12) 1,000 MCG TAB PO SCH (09:20)
[2020-10-22] MEDS: Pancrelipase DR 12,000 1 CAP PO SCH ×3 (09:20→17:32)
[2020-10-22] MEDS: Ramipril 5 MG CAP PO SCH (09:20)
[2020-10-22] MEDS: Folic Acid 1 MG TAB PO SCH (09:20)
[2020-10-22] MEDS: Thiamine 100 MG TAB PO SCH (09:20)
--- NOTE | 2020-10-22 10:08 | PDOC.HOSPP ---
- Subjective Encounter Date: 10/22/20 Encounter Time: 08:00 Subjective: Patient seen and examined bedside today, patient has intermittent nausea and belching, he gets intermittent abdominal pain, - Objective Vital Signs & Weight: Vital Signs (12 hours) Temp Pulse Resp BP BP Pulse Ox 10/22/20 07:55 97.9 F 52 L 18 146/74 H 99 10/22/20 04:06 97.3 F L 51 L 14 112/67 98 10/21/20 23:54 98 F 50 L 14 152/74 H 97 Weight Admit Weight 123 lb Weight 123 lb I&O: 10/21/20 10/22/20 10/23/20 06:59 06:59 06:59 Intake Total 2540 2820 Output Total 1800 1000 550 Balance 740 1820 -550 Result Diagrams: 10/22/20 05:55 10/22/20 05:55 Additional Labs: Accuchecks 10/22/20 10/21/20 10/21/20 05:37 20:53 16:14 POC Glucose 168 H 222 H 150 H 10/21/20 10/20/20 10/20/20 10:51 16:54 13:03 POC Glucose 107 H 157 H 104 H Hospitalist ROS - Review of Systems Eyes: denies: pain, vision change, conjunctivae inflammation, eyelid inflamm ation, redness, other ENT: denies: ear pain, ear discharge, nose pain, nose discharge, nose congestion, mouth pain, mouth swelling, throat pain, throat swelling, other Respiratory: denies: cough, dry, shortness of breath, hemoptysis, SOB with excertion, pleuritic pain, sputum, wheezing, other Cardiovascular: denies: chest pain, palpitations, orthopnea, paroxysmal noc. dyspnea, edema, light headedness, other Gastrointestinal: reports: nausea, abdominal pain. denies: vomiting, diarrhea, constipation, melena, hematochezia, other Genitourinary: denies: dysuria, frequency, incontinence, hematuria, retention, other Musculoskeletal: denies: neck pain, shoulder pain, arm pain, back pain, hand pain, leg pain, foot pain, other - Medication Medications: Active Medications Generic Name Dose Route Start Last Admin Trade Name Freq PRN Reason Stop Dose Admin Lipase/Protease/Amylase 1 cap 10/22/20 08:00 10/22/20 09:[address] 12,000 1 Cap PO 1 cap TID-WM SRUTHI Administration Cyanocobalamin 1,000 mcg 10/21/20 09:00 10/22/20 09:20 Cyanocobalamin (Vitamin B-12) 1,000 Mcg Tab PO 1,000 mcg DAILY SRUTHI Administration Folic Acid 1 mg 10/21/20 09:00 10/22/20 09:20 Folic Acid 1 Mg Tab PO 1 mg DAILY SRUTHI Administration Hydralazine HCl 10 mg 10/18/20 19:21 10/18/20 22:07 Hydralazine 20 Mg/Ml Vial SLOW IVP 10 mg Q4H PRN Administration SBP >150 Amino Ac/Electrol/Dextrose/Calcium 2,000 mls @ 85 mls/hr 10/21/20 08:45 10/21/20 11:23 Clinimix E 4.25%-5% Solution IV 2,000 mls INF SRUTHI Administration Promethazine HCl 12.5 mg/ 50.5 mls @ 202 mls/hr 10/21/20 09:05 10/22/20 07:25 Sodium Chloride IVPB 50.5 mls Q6H PRN Administration Nausea/Vomiting Insulin Human Lispro 0 units 10/19/20 00:47 10/22/20 05:44 Humalog 300 Units/3 Ml Vial SC 2 unit .MILD SLIDING SCALE PRN Administration Mild Correctional Scale Insulin Human Lispro 0 units 10/19/20 00:47 10/21/20 21:48 Humalog 300 Units/3 Ml Vial SC 2 unit .BEDTIME SLIDING SC PRN Administration Bedtime Correctional Scale Morphine Sulfate 2 mg 10/18/20 19:01 10/21/20 09:57 Morphine 2 Mg/Ml Vial SLOW IVP 2 mg Q6H PRN Administration Chest Pain Ondansetron HCl 4 mg 10/18/20 19:00 10/21/20 20:19 Ondansetron Pf 4 Mg/2 Ml Vial IVP 4 mg Q4H PRN Administration Nausea/Vomiting use 1st Pantoprazole Sodium 40 mg 10/19/20 09:00 10/22/20 07:25 Pantoprazole 40 Mg Vial IVP 40 mg DAILY SRUTHI Administration Ramipril 10 mg 10/20/20 09:00 10/22/20 09:20 Ramipril 5 Mg Cap PO 10 mg DAILY SRUTHI Administration Thiamine HCl 100 mg 10/21/20 09:00 10/22/20 09:20 Thiamine 100 Mg Tab PO 100 mg DAILY SRUTHI Administration - Exam General Appearance: NAD, awake alert Eye: PERRL, anicteric sclera ENT: normocephalic atraumatic, no oropharyngeal lesions Neck: supple, symmetric, no JVD, no thyromegaly Heart: RRR, no murmur, no gallops, no rubs Respiratory: no wheezes, no rales, no ronchi Gastrointestinal: soft, non-tender, non-distended, normal bowel sounds Extremities: no cyanosis, no clubbing, no edema Skin: normal turgor, no lesions Neurological: no focal deficits Musculoskeletal: normal tone, normal strength, no muscle wasting Psychiatric: normal affect, normal behavior Hosp A/P (1) Intractable nausea and vomiting Code(s): R11.2 - NAUSEA WITH VOMITING, UNSPECIFIED Status: Acute Plan: Slowly improving, continue symptomatic treatment with Phenergan (2) Chronic pancreatitis Code(s): K86.1 - OTHER CHRONIC PANCREATITIS Status: Chronic Qualifiers: Pancreatitis type: unspecified pancreatitis type Qualified Code(s): K86.1 - Other chronic pancreatitis Plan: Because of intermittent abdominal pain and poor tolerance with a diet we will add pancreatic enzyme supplement with the Creon DR 1 tablet 3 times daily with meal, patient will need outpatient neurology follow-up for pancreatic duct stent placement as an outpatient basis (3) DM type 2 (diabetes mellitus, type 2) Status: Chronic Qualifiers: Diabetes mellitus complication status: without complication (4) Hypertension Code(s): I10 - ESSENTIAL (PRIMARY) HYPERTENSION Status: Chronic Qualifiers: Hypertension type: essential hypertension Qualified Code(s): I10 - Essential (primary) hypertension (5) Dyslipidemia Code(s): E78.5 - HYPERLIPIDEMIA, UNSPECIFIED Status: Chronic (6) Macrocytosis without anemia Code(s): D75.89 - OTHER SPECIFIED DISEASES OF BLOOD AND BLOOD-FORMING ORGANS Status: Chronic (7) Protein-calorie malnutrition, moderate Code(s): E44.0 - MODERATE PROTEIN-CALORIE MALNUTRITION Status: Chronic - Plan old records reviewed/req We will add pancreatic enzyme supplement and Continue IV PPI Continue to advance diet as tolerated Patient will need outpatient follow-up with gastroenterology for pancreatic duct stent placement Once he tolerates p.o. then will consider discharging in next 24 to 48 hours. To ambulate him will have consulted PT OT
--- NOTE | 2020-10-22 10:20 | EKG ---
Test Reason : Blood Pressure : / mmHG Vent. Rate : 058 BPM Atrial Rate : 058 BPM P-R Int : 170 ms QRS Dur : 080 ms QT Int : 436 ms P-R-T Axes : 074 008 048 degrees QTc Int : 428 ms Sinus bradycardia with sinus arrhythmia Possible Left atrial enlargement Septal infarct , age undetermined Abnormal ECG Confirmed by LETTY SADLER ([id number]), medical editor WILI PACK ([id number]) on 10/22/2020 10:20:12 AM Referred By: Confirmed By:LETTY Verduzco
[2020-10-22] MEDS: Sodium Acetate 2 mEq/ml 20 MEQ, Sodium Chloride 15 MEQ, Potassium ACETATE 10 MEQ, Potas... IV SCH (13:02)
[2020-10-22] MEDS: Morphine 2 MG/ML VIAL SLOW IVP PRN (21:50)
[2020-10-23] MEDS: Sodium Acetate 2 mEq/ml 20 MEQ, Sodium Chloride 15 MEQ, Potassium ACETATE 10 MEQ, Potas... IV SCH (00:39)
[2020-10-23] MEDS: hydrALAZINE 20 MG/ML VIAL SLOW IVP PRN (05:58)
[2020-10-23] MEDS: HumaLOG 300 UNITS/3 ML VIAL SC PRN (06:21)
--- NOTE | 2020-10-23 08:49 | PRG ---
DATE OF SERVICE: 10/22/2020 SUBJECTIVE: Mr. Blakely is tolerating clear liquids. He denies any vomiting. OBJECTIVE: VITAL SIGNS: Temperature is 97, pulse 52, respirations 18, blood pressure 146/74. ABDOMEN: Soft and nontender. GENERAL: He is thin. LABORATORY DATA: White count 4, hemoglobin 11.8, platelet count 129. Electrolytes normal. ASSESSMENT: 1. Chronic pancreatitis. 2. 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 3. Nausea and vomiting, markedly improved. RECOMMENDATIONS: Advance diet to low fat. Discharge home. He can follow up with Dr. Lorenzo in our office for consideration of EUS and pancreatic duct stent placement in [place] at a later date. Job ID: [id number]
[2020-10-23] MEDS: Thiamine 100 MG TAB PO SCH (08:54)
[2020-10-23] MEDS: Cyanocobalamin (Vitamin B-12) 1,000 MCG TAB PO SCH (08:54)
[2020-10-23] MEDS: Ramipril 5 MG CAP PO SCH (08:54)
[2020-10-23] MEDS: Pantoprazole 40 MG VIAL IVP SCH (08:54)
[2020-10-23] MEDS: Pancrelipase DR 12,000 1 CAP PO SCH ×2 (08:54→11:28)
[2020-10-23] MEDS: Folic Acid 1 MG TAB PO SCH (08:54)
[2020-10-23 08:58] VITALS: BP 111/63; TEMP 97.4
[2020-10-23] MEDS: Ondansetron PF 4 MG/2 ML Vial IVP PRN (09:56)
--- NOTE | 2020-10-23 10:42 | PDOC.DS.DS ---
Provider - Provider Date of Admission: 10/18/20 18:45 Date of Discharge: 10/23/20 Admitting Provider: Ronald Quinn MD Consultations: Gastroentrology Primary Care Physician: Stephanie Arceo MD Course - Hospital Course Hospital Course: 70-year-old male who has underlying history of chronic pancreatitis, he was brought to emergency room for prolonged duration of intractable nausea and vomiting and patient was not able to tolerate any oral intake, After admission he was treated with IV fluid, he was given symptomatic treatment with Zofran and Phenergan to control his nausea and vomiting, his pain was also controlled. Patient was evaluated by dietitian and patient was interest poor nutrition so we started PPN while in hospital, Patient was also evaluated by gastroenterology and they did upper endoscopy which was essentially unremarkable, biopsy report consistent with negative for H. pylori, Subsequently patient had abdominal MRI which showed dilatation of mid pancreatic duct which is consistent with chronic pancreatitis, gastroenterology recommended that patient will need outpatient evaluation at tertiary care center for stent placement in his main pancreatic duct, We have discussed with the patient about dietary intervention change, he will follow up with gastroenterology to schedule appointment with specialist in [place] on, While in hospital we have corrected his electrolytes, on discharge we have prescribed new medication as well. Patient today he feels better and he wants to go home today, gastroenterology cleared him for discharge as well. Procedures: EGD showed no acute finding, biopsy obtained result is pending Resuscitation Status: 10/19/20 11:20 Resuscitation Status Routine Resuscitation Status: FULL: Full Resuscitation - Labs Lab Results: 10/22/20 05:55 10/22/20 05:55 Abnormal Lab Results - Last 48 hrs 10/21/20 19:08: Folate 6.50 L 10/22/20 05:55: WBC 4.0 L, RBC 3.35 L, Hgb 11.8 L, Hct 33.6 L, MCV 100.0 H, MCH 35.3 H, Plt Count 129 L, MPV 6.4 L, Basophils % 1.7 H - Diagnostic Interpretation Other Status: image reviewed by me Additional comments: CT abdomen and pelvis on admission showed no acute finding, s/p cholecystectomy and appendicectomy, enlarged prostate Abdomen MRI consistent with nonspecific dilatation of main pancreatic duct splenomegaly - Physical Exam Vitals: Vital Signs (12 hours) Temp Pulse Resp BP BP Pulse Ox 10/23/20 08:54 111/63 10/23/20 08:30 97.4 F L 53 L 18 111/63 98 10/23/20 05:58 78 169/76 H 10/23/20 04:24 97.5 F L 59 L 18 169/78 H 97 Weight Admit Weight 123 lb Weight 123 lb Physical Exam: The patient was seen and examined on the day of discharge. General patient is currently alert and awake no acute distress Head normocephalic atraumatic Neck supple no JVD no meningeal signs of irritation Lungs clear to auscultation without any rhonchi or rales Cardiac S1-S2 regular, no murmur no gallop no rub Abdomen soft, bowel sound present, nontender nondistended no organomegaly no mass Extremity no edema good distal pulsation Neurologic nonfocal examination Problem - Problem (1) Intractable nausea and vomiting Code(s): R11.2 - NAUSEA WITH VOMITING, UNSPECIFIED Status: Acute (2) Chronic pancreatitis Code(s): K86.1 - OTHER CHRONIC PANCREATITIS Status: Chronic Qualifiers: Pancreatitis type: unspecified pancreatitis type Qualified Code(s): K86.1 - Other chronic pancreatitis (3) DM type 2 (diabetes mellitus, type 2) Status: Chronic Qualifiers: Diabetes mellitus complication status: without complication (4) Hypertension Code(s): I10 - ESSENTIAL (PRIMARY) HYPERTENSION Status: Chronic Qualifiers: Hypertension type: essential hypertension Qualified Code(s): I10 - Essential (primary) hypertension (5) Dyslipidemia Code(s): E78.5 - HYPERLIPIDEMIA, UNSPECIFIED Status: Chronic (6) Macrocytosis without anemia Code(s): D75.89 - OTHER SPECIFIED DISEASES OF BLOOD AND BLOOD-FORMING ORGANS Status: Chronic (7) Protein-calorie malnutrition, moderate Code(s): E44.0 - MODERATE PROTEIN-CALORIE MALNUTRITION Status: Chronic Plan - Discharge Medications Prescriptions: Promethazine [Phenergan] 25 mg PO Q6HR PRN #20 tab PRN Reason: Nausea/Vomiting Lipase/Protease/Amylase [Creon DR 12,000 Units] 1 cap PO TID-WM #90 cap Folic Acid [Folvite] 1 mg PO DAILY #30 tab Thiamine 100 mg PO DAILY #30 tab Cyanocobalamin (Vitamin B-12) [Vitamin B-12] 1,000 mcg PO DAILY #30 tab Home Medications: Medication Instructions Recorded Confirmed Type Lansoprazole [Prevacid] 30 mg PO DAILY 09/02/17 10/18/20 History Ramipril 10 mg PO DAILY 09/02/17 10/18/20 History Aspirin 325 mg PO DAILY tab 09/04/17 10/18/20 Rx Famotidine 40 mg PO DAILY 10/19/20 10/19/20 History Cyanocobalamin (Vitamin B-12) 1,000 mcg PO DAILY #30 tab 10/23/20 Rx [Vitamin B-12] Folic Acid [Folvite] 1 mg PO DAILY #30 tab 10/23/20 Rx Lipase/Protease/Amylase [Creon DR 1 cap PO TID-WM #90 cap 10/23/20 Rx 12,000 Units] Promethazine [Phenergan] 25 mg PO Q6HR PRN #20 tab 10/23/20 Rx Thiamine 100 mg PO DAILY #30 tab 10/23/20 Rx Allergies: alcohol Allergy (Verified 12/26/19 17:05) Only when ingested. States rubbing alcohol okay. caffeine Allergy (Verified 12/26/19 17:05) chocolate flavor Allergy (Verified 12/26/19 17:05) codeine Allergy (Verified 12/26/19 17:05) hydrocodone [From [place]] Allergy (Verified 10/18/20 22:33) pineapple Allergy (Verified 12/26/19 17:05) Specifically pineapple juice prochlorperazine [From Compazine] Allergy (Verified 12/26/19 17:05) atorvastatin [From Lipitor] Adverse Reaction (Intermediate, Verified 10/20/20 21:14) pt cannot remeber reaction but was told by primary to not take. - Discharge Instructions Activity:: Activity as Tolerated Nourishment:: Diabetic Diet Therapies:: Not Applicable Equipment/Supplies:: Not Applicable IV Therapy:: Not Applicable - Follow up Plan Referrals: Stephanie Arceo MD [Primary Care Provider] - Chapito Lorenzo MD [Active] - Disposition: HOME Quality - Care Measures CORE MEASURES:: N/A
--- NOTE | 2020-10-26 11:17 | OP ---
DATE OF PROCEDURE: 10/20/2020 PROCEDURE: EGD. PREPROCEDURE DIAGNOSIS: 1. Epigastric discomfort, persistent vomiting and nausea, inability to take p.o. 2. Prior history of chronic pancreatitis. POSTPROCEDURE DIAGNOSIS: Normal EGD, biopsies obtained for H. pylori. RECOMMENDATIONS: Consider MRCP to evaluate for PD stricture or mass, rule out chronic pancreatitis. He may need to have PD stents placed as he has had this in the past. ANESTHESIA: TIVA. DESCRIPTION OF PROCEDURE: The patient was informed of the risks, benefits, and possible complications of endoscopy including perforation, bleeding, reaction to medication, aspiration. Informed consent was obtained. The patient was brought to endoscopy suite, where he was sedated in a gradual fashion. Once he was comfortable, a bite block was placed in the incisural orifice. The endoscope was advanced into esophagus, stomach, into second and third portions of the duodenum and slowly removed. The esophagus, stomach, and duodenum were normal at the third portion. Random biopsies taken from the stomach for H. pylori as the patient reports he has had this in the past. Retroflexed views in the stomach were normal. The scope was removed. The patient tolerated procedure well. There were no complications. Job ID: [id number]
== END 2020-10-23 11:35 | disposition home or self-care (01) | DRG 439 ==
LOC: ERS 15:13 → SURG B 18:45
PROVIDERS: ADMIT Internal Medicine; ATTEND Internal Medicine
PROC: 0DD68ZX Extraction of Stomach, Via Natural or Artificial Opening Endoscopic, Diagnostic (ICD-10-PCS; principal; 2020-10-20)
DX: K86.1 Other chronic pancreatitis (principal); E44.0 Moderate protein-calorie malnutrition; Z68.1 Body mass index [BMI] 19.9 or less, adult; K92.0 Hematemesis; N40.0 Benign prostatic hyperplasia without lower urinary tract symptoms; E78.5 Hyperlipidemia, unspecified; D75.89 Other specified diseases of blood and blood-forming organs; K21.9 Gastro-esophageal reflux disease without esophagitis; J45.909 Unspecified asthma, uncomplicated; F41.9 Anxiety disorder, unspecified; E53.8 Deficiency of other specified B group vitamins; N18.9 Chronic kidney disease, unspecified; E11.22 Type 2 diabetes mellitus with diabetic chronic kidney disease; I12.9 Hypertensive chronic kidney disease with stage 1 through stage 4 chronic kidney disease, or unspecified chronic kidney disease; K58.9 Irritable bowel syndrome, unspecified; Z86.73 Personal history of transient ischemic attack (TIA), and cerebral infarction without residual deficits; Z90.49 Acquired absence of other specified parts of digestive tract; Z90.89 Acquired absence of other organs; Z88.8 Allergy status to other drugs, medicaments and biological substances; Z88.6 Allergy status to analgesic agent; Z91.018 Allergy to other foods; Z79.82 Long term (current) use of aspirin; Z79.899 Other long term (current) drug therapy; Z20.822 Contact with and (suspected) exposure to COVID-19
CPT/HCPCS: 0240U; 36415; 36416; 74177; 74181; 80048; 80053; 81220; 82607; 82746; 82787; 83036; 83690; 85025; 86301; 88305; 88312; 93005; 94760; 96365; 96366; 96375; C9113; J0360; J2001; J2270; J2405; J2550; J2704; J2765; J3010; J3475; J3490; Q9967; S0028

== ENCOUNTER 2020-10-25 16:56 | Inpatient (IN) | payer MEDICARE, BC ==
[2020-10-25] MEDS ORDERED: Promethazine HCl 25 MG/ML VIAL ONE (17:34)
[2020-10-25 17:43] LABS: #Basophils 0.1 thou/uL (0.0-0.2); #Eosinphils 0.4 thou/uL (0.0-0.7); #Monocytes 0.4 thou/uL (0.11-0.59); #Neutrophils 5.1 thou/uL (1.40-6.50); %Basophils 0.9 % (0.0-1.0); %Eosinophils 5.2 % (0.0-10.0); %Lymphocytes 14.7 % (21.0-51.0); %Monocytes 5.4 % (0.0-10.0); %Neutrophils 73.8 % (42.0-75.0); Hemoglobin 14.8 g/dL (14.0-18.0); Mean Corpuscular HGB CONC 34.5 g/dL (32.0-36.0); Mean Corpuscular Hemoglobin 35.3 pg (27.0-31.0); Mean Platelet Volume 6.8 fL (7.4-10.4); Platelet Count 158 thou/uL (130-400); White Blood Cell (WBC) Count 6.8 thou/uL (4.8-10.8)
[2020-10-25 18:17] LABS: ALT (SGPT) 17 U/L (8-55); AST (SGOT) 19 U/L (5-34); Albumin 4.2 g/dL (3.4-4.8); Alkaline Phosphatase 80 U/L (40-110); Anion Gap 20 mmol/L (10-20); BUN (Urea Nitrogen) 23 mg/dL (8.4-25.7); Calc. Creatinine Clearance 0 mL/min (70-130); Carbon Dioxide 23 mmol/L (23-31); Chloride 100 mmol/L (98-107); Globulin 3.7 g/dL (2.4-3.5); Glucose 186 mg/dL (80-115); Lipase Less than 4 U/L (8-78); Potassium 4.6 mmol/L (3.5-5.1); Protein, Total 7.9 g/dL (5.8-8.1); Sodium 138 mmol/L (136-145)
[2020-10-25 18:25] LABS: Calcium 9.4 mg/dL (7.8-10.44)
[2020-10-25] MEDS ORDERED: Morphine 4 MG/ML VIAL ONE (18:33)
[2020-10-25] MEDS ORDERED: Ondansetron PF 4 MG/2 ML Vial ONE (18:33)
[2020-10-25] MEDS ORDERED: Ondansetron ODT 4 MG TAB PO PRN (19:42)
[2020-10-25] MEDS ORDERED: Ondansetron PF 4 MG/2 ML Vial IVP PRN (19:42)
--- NOTE | 2020-10-25 19:49 | PDOC.HHP ---
Hospitalist HPI - History of Present Illness Nausea and vomiting History of Present Illness: This is a 70-year-old male patient With a history of chronic pancreatitis, diabetes mellitus type 2, who presents with ongoing nausea and vomiting for days duration. Next Of note he was admitted and discharged 2 days ago on account of intractable nausea and vomiting with chronic pancreatitis. Discharge plan was to have him follow-up with GI and subsequently have pancreatic stent in [place]. Today had worsening nausea and vomitingcontacted GI. He was called and asked to come to the ED for stabilization and arrangement for transfer to [place] tomorrow for pancreatic stenting. No signs of generalized and persistent however resolved with initial management in the ED. He still has mild epigastric pain however so much improved. He denies any cough chest pain shortness of breath or fevers. No diarrhea constipation no dysuria At presentation his BP was 154/87, pulse 95, respiratory 20, temperature 98.5, saturation 99% on room air. CBC generally unremarkable, BMP showed glucose of 186, and lipase of less than 4. Amylase was 29. He was given IV fluids, morphine ondansetron and Phenergan. Hospitalist team consulted for admission Hospitalist ROS - Review of Systems Constitutional: reports: weakness, malaise. denies: fever, chills, sweats Respiratory: denies: cough, shortness of breath, hemoptysis, SOB with excertion Gastrointestinal: reports: nausea, vomiting, abdominal pain. denies: diarrhea, constipation Musculoskeletal: denies: neck pain, shoulder pain Neurological: denies: weakness, numbness, incoordination, change in speech All other systems reviewed; all pertinent +/- noted in HPI/Subj Hospitalist History - Past Medical History Endocrine: reports: Diabetes Other Medical History: Chronic pancreatitis pancreatitis - Past Surgical History Other Surgical History: Appendectomy, pancreatic pseudocyst removal, cholecystectomy, tonsillectomy, adenoidectomy, pancreatic stent - Family History Family History: reports: no pertinent history - Social History Smoking Status: Never smoker Alcohol: reports: None Living Situation: Alone - Exam General Appearance: awake alert General - other findings: In bed, no acute distress. ENT: normocephalic atraumatic Heart: RRR, no murmur, no gallops Respiratory: CTAB, no wheezes, no rales Gastrointestinal: soft, non-distended, normal bowel sounds, no palpable masses, tender to palpation (Mild epigastric tenderness) Extremities: no cyanosis, no clubbing, no edema Neurological: cranial nerve grossly intact, no weakness, no focal deficits Psychiatric: normal affect, normal behavior, A&O x 3 Hospitalist Results - Labs Result Diagrams: 10/25/20 17:30 10/25/20 17:30 Lab results: WBC 6.8 thou/uL (4.8-10.8) 10/25/20 17:30 Hgb 14.8 g/dL (14.0-18.0) 10/25/20 17:30 Hct 42.9 % (42.0-52.0) 10/25/20 17:30 MCV 102.0 fL (78.0-98.0) H 10/25/20 17:30 Plt Count 158 thou/uL (130-400) 10/25/20 17:30 Neutrophils % 73.8 % (42.0-75.0) 10/25/20 17:30 Sodium 138 mmol/L (136-145) 10/25/20 17:30 Potassium 4.6 mmol/L (3.5-5.1) 10/25/20 17:30 Chloride 100 mmol/L (98-107) 10/25/20 17:30 Carbon Dioxide 23 mmol/L (23-31) 10/25/20 17:30 BUN 23 mg/dL (8.4-25.7) 10/25/20 17:30 Creatinine 1.10 mg/dL (0.7-1.3) 10/25/20 17:30 Glucose 186 mg/dL (80-115) H 10/25/20 17:30 Calcium 9.4 mg/dL (7.8-10.44) 10/25/20 17:30 Total Bilirubin 1.0 mg/dL (0.2-1.2) 10/25/20 17:30 AST 19 U/L (5-34) 10/25/20 17:30 ALT 17 U/L (8-55) 10/25/20 17:30 Alkaline Phosphatase 80 U/L (40-110) 10/25/20 17:30 Serum Total Protein 7.9 g/dL (5.8-8.1) 10/25/20 17:30 Albumin 4.2 g/dL (3.4-4.8) 10/25/20 17:30 Lipase Less than 4 U/L (8-78) L 10/25/20 17:30 Hospitalist H&P A/P - Plan Plan: This a 70-year-old male patient with a history of chronic pancreatitis discharged 2 days ago only to come back with ongoing nausea and vomiting. He will be admitted prior to arrangements for transfer to [place] for pancreatic stenting. Nausea and vomiting The setting of chronic pancreatitis Pain relief, ondansetron/Phenergan for nausea and vomiting Fluid and electrolyte replacement. Acute on chronic pancreatitis Ongoing pain chronic pancreatitis Pain relief as above GI consult in a.m. Diabetes mellitus Correctional insulin Monitor glucose. VT prophylaxisLovenox Code statusfull
[2020-10-25 21:11] VITALS: BMI 17.1
[2020-10-25] MEDS: Promethazine HCl 25 MG/ML VIAL IM/IV PRN (22:54)
[2020-10-25] MEDS: Sodium Chloride 0.9% 1,000 ML IV SCH (22:55)
[2020-10-26] MEDS: Promethazine HCl 25 MG/ML VIAL IM/IV PRN (06:01)
--- NOTE | 2020-10-26 06:25 | PDOC.DS.DS ---
Provider - Provider Date of Admission: 10/25/20 19:36 Date of Discharge: 10/26/20 Admitting Provider: Eliseo Zendejas MD Primary Care Physician: Stephanie Arceo MD Course - Hospital Course Hospital Course: Patient was admitted on account of shortness of breath and cough in the setting of COPD exacerbation. After breathing treatment initial management for anxiety, patient decided to leave AMA She notes pain generally unhappy with treatment. Resuscitation Status: 10/25/20 19:39 Resuscitation Status Routine Resuscitation Status: FULL: Full Resuscitation - Labs Lab Results: 10/25/20 17:30 10/25/20 17:30 Abnormal Lab Results - Last 48 hrs 10/25/20 17:30: Globulin 3.7 H, Albumin/Globulin Ratio 1.1 L, Lipase Less than 4 L 10/25/20 17:30: RBC 4.20 L, MCV 102.0 H, MCH 35.3 H, MPV 6.8 L, Lymphocytes % 14.7 L, Lymphocytes # 1.0 L - Physical Exam Vitals: Vital Signs (12 hours) Temp Pulse Resp BP Pulse Ox 10/26/20 05:40 97.5 F L 55 L 18 149/70 H 99 10/25/20 22:55 97.4 F L 55 L 18 166/75 H 99 10/25/20 22:20 99 10/25/20 20:20 97.4 F L 75 20 188/86 H 99 Weight Weight 115 lb 11.2 oz Physical Exam: The patient was seen and examined on the day of discharge. Problem - Discharge Plan Assessment: COPD exacerbation Patient left AMA I called and cefdinir and steroid She notes having breathing treatments at home Plan - Discharge Medications Home Medications: Medication Instructions Recorded Confirmed Type RX: Lansoprazole [Prevacid] 30 mg PO DAILY 09/02/17 10/25/20 History RX: Ramipril 10 mg PO DAILY 09/02/17 10/25/20 History RX: Aspirin 325 mg PO DAILY tab 09/04/17 10/25/20 Rx RX: Famotidine 40 mg PO DAILY 10/19/20 10/25/20 History Promethazine [Phenergan] 25 mg PO Q6HR PRN #20 tab 10/23/20 10/25/20 Rx RX: Cyanocobalamin (Vitamin B-12) 1,000 mcg PO DAILY #30 tab 10/23/20 10/25/20 Rx [Vitamin B-12] RX: Folic Acid [Folvite] 1 mg PO DAILY #30 tab 10/23/20 10/25/20 Rx RX: Lipase/Protease/Amylase [Creon 1 cap PO TID-WM #90 cap 10/23/20 10/25/[address] 12,000 Units] RX: Thiamine 100 mg PO DAILY #30 tab 10/23/20 10/25/20 Rx Allergies: alcohol Allergy (Verified 12/26/19 17:05) Only when ingested. States rubbing alcohol okay. caffeine Allergy (Verified 12/26/19 17:05) chocolate flavor Allergy (Verified 12/26/19 17:05) codeine Allergy (Verified 12/26/19 17:05) hydrocodone [From [place]] Allergy (Verified 10/18/20 22:33) pineapple Allergy (Verified 12/26/19 17:05) Specifically pineapple juice prochlorperazine [From Compazine] Allergy (Verified 12/26/19 17:05) atorvastatin [From Lipitor] Adverse Reaction (Intermediate, Verified 10/20/20 21:14) pt cannot remeber reaction but was told by primary to not take. - Follow up Plan Referrals: Stephanie Arceo MD [Primary Care Provider] - Disposition: HOME Quality - Care Measures CORE MEASURES:: N/A - Stroke/TIA Did you prescribe antithrombotic therapy?: No Specify reason for no DC antithrombotic therapy: Treatment not indicated Did you prescribe anticoagulant for A Fib/Flutter?: No Specify reason for no DC anticoagulant: Treatment not indicated Did you prescribe a statin medication?: No Specify reason for no DC statin medication: Treatment not indicated
[2020-10-26 06:40] LABS: #Basophils 0.1 thou/uL (0.0-0.2); #Eosinphils 0.2 thou/uL (0.0-0.7); #Lymphocytes 1.3 thou/uL (1.20-3.40); #Monocytes 0.4 thou/uL (0.11-0.59); #Neutrophils 2.2 thou/uL (1.40-6.50); %Basophils 2.4 % (0.0-1.0); %Eosinophils 5.6 % (0.0-10.0); %Lymphocytes 30.4 % (21.0-51.0); %Monocytes 8.5 % (0.0-10.0); %Neutrophils 53.2 % (42.0-75.0); Hemoglobin 11.7 g/dL (14.0-18.0); Mean Corpuscular HGB CONC 34.8 g/dL (32.0-36.0); Mean Corpuscular Hemoglobin 35.3 pg (27.0-31.0); Mean Platelet Volume 6.6 fL (7.4-10.4); Platelet Count 125 thou/uL (130-400); RBC Distribution Width 11.9 % (11.5-14.5); Red Blood Cell (RBC) Count 3.33 mill/uL (4.70-6.10); White Blood Cell (WBC) Count 4.2 thou/uL (4.8-10.8)
[2020-10-26 07:51] LABS: Chloride 108 mmol/L (98-107); Potassium 3.8 mmol/L (3.5-5.1); Sodium 140 mmol/L (136-145)
[2020-10-26 07:52] LABS: Glucose 107 mg/dL (80-115)
[2020-10-26 07:54] LABS: Anion Gap 12 mmol/L (10-20); Carbon Dioxide 24 mmol/L (23-31)
[2020-10-26 07:55] LABS: Calc. Creatinine Clearance 63 mL/min (70-130)
[2020-10-26 07:56] LABS: BUN (Urea Nitrogen) 16 mg/dL (8.4-25.7)
[2020-10-26 07:58] LABS: Calcium 7.9 mg/dL (7.8-10.44)
[2020-10-26] MEDS: Enoxaparin Sodium 40 MG/0.4 ML SYRINGE SC SCH (09:08)
[2020-10-26] MEDS: Sodium Chloride 0.9% 1,000 ML IV SCH (09:08)
[2020-10-26] MEDS: Morphine 2 MG/ML VIAL SLOW IVP PRN (14:11)
--- NOTE | 2020-10-26 15:27 | PDOC.HOSPP ---
- Subjective Encounter Date: 10/26/20 Encounter Time: 15:23 Subjective: Mr. Blakely was seen today in follow-up of acute on chronic pancreatitis. He notes some continued abdominal pain. He says every time he tried to eat or drink anything it will cause him to vomit. He says he has lost about 12 pounds in the past few weeks. - Objective Vital Signs & Weight: Vital Signs (12 hours) Temp Pulse Resp BP Pulse Ox 10/26/20 12:34 97.3 F L 54 L 14 161/94 H 99 10/26/20 09:10 118/75 10/26/20 08:39 99 10/26/20 08:00 97.3 F L 70 14 118/75 99 10/26/20 05:40 97.5 F L 55 L 18 149/70 H 99 Weight Weight 115 lb 11.2 oz I&O: 10/25/20 10/26/20 10/27/20 06:59 06:59 06:59 Intake Total 1200 Balance 1200 Result Diagrams: 10/26/20 05:29 10/26/20 07:07 Additional Labs: Accuchecks 10/26/20 11:23 POC Glucose 103 H Hospitalist ROS - Medication Medications: Active Medications Generic Name Dose Route Start Last Admin Trade Name Freq PRN Reason Stop Dose Admin Enoxaparin Sodium 40 mg 10/26/20 09:00 10/26/20 09:08 Enoxaparin Sodium 40 Mg/0.4 Ml Syringe SC 40 mg 0900 SRUTHI Administration Sodium Chloride 1,000 mls @ 75 mls/hr 10/25/20 20:00 10/26/20 09:08 Normal Saline 0.9% IV 1,000 mls .[id number] SRUTHI Administration Morphine Sulfate 2 mg 10/25/20 19:59 10/26/20 14:11 Morphine 2 Mg/Ml Vial SLOW IVP 2 mg Q2H PRN Administration Pain Promethazine HCl 25 mg 10/25/20 19:42 10/26/20 06:01 Promethazine Hcl 25 Mg/Ml Vial IM/IV 25 mcg Q6H PRN Administration Nausea/Vomiting - Exam Eye: PERRL, anicteric sclera Heart: RRR, no murmur, no gallops, no rubs, normal peripheral pulses Respiratory: CTAB, no wheezes, no rales, no ronchi, normal chest expansion, no tachypnea, normal percussion Gastrointestinal: soft, non-tender, non-distended, normal bowel sounds, no palpable masses, no hepatomegaly Extremities: no cyanosis, no edema Hosp A/P (1) Intractable nausea and vomiting Code(s): R11.2 - NAUSEA WITH VOMITING, UNSPECIFIED Status: Acute (2) Nausea & vomiting Code(s): R11.2 - NAUSEA WITH VOMITING, UNSPECIFIED Status: Acute Qualifiers: Vomiting type: unspecified Vomiting Intractability: intractable Qualified Code(s): R11.2 - Nausea with vomiting, unspecified (3) Chronic pancreatitis Code(s): K86.1 - OTHER CHRONIC PANCREATITIS Status: Chronic Qualifiers: Pancreatitis type: unspecified pancreatitis type Qualified Code(s): K86.1 - Other chronic pancreatitis (4) DM type 2 (diabetes mellitus, type 2) Status: Chronic Qualifiers: Diabetes mellitus complication status: without complication (5) Dyslipidemia Code(s): E78.5 - HYPERLIPIDEMIA, UNSPECIFIED Status: Chronic (6) Hypertension Code(s): I10 - ESSENTIAL (PRIMARY) HYPERTENSION Status: Chronic Qualifiers: Hypertension type: essential hypertension Qualified Code(s): I10 - E ssential (primary) hypertension - Plan * Acute on chronic pancreatitis- will allow clear liquids and continue IV Morphine and IV anti-emetics * Continue to monitor his electrolytes * WIll Given his recent admission,weight loss, and report that he can not keep anything down, will see if he can be transferred to a higher level of care- possibly [facility], or [facility]. He tells me he has required pancreatic STENT's in the past.
[2020-10-26] MEDS ORDERED: Dextrose 50% Abboject 50 ML SYRINGE SLOW IVP PRN (15:30)
[2020-10-26] MEDS ORDERED: Dextrose 5% in Water 1,000 ML IV PRN (15:30)
[2020-10-26] MEDS ORDERED: HumaLOG 300 UNITS/3 ML VIAL SC PRN ×2 (15:30)
--- NOTE | 2020-10-26 22:49 | CON ---
DATE OF CONSULTATION: 10/26/2020 REQUESTING PHYSICIAN: Eliseo Zendejas MD REASON FOR CONSULTATION: Chronic recurrent pancreatitis. HISTORY OF PRESENT ILLNESS: Richmond Blakely is a 70-year-old man, who was readmitted to the hospital last night with recurrent pancreatitis, protracted vomiting, and weight loss. Briefly, he reports a history of multiple episodes of recurrent pancreatitis ever since childhood. This had been deemed idiopathic, though interestingly his brother also has a history of chronic pancreatitis. The patient does not smoke or drink alcohol. He underwent a cholecystectomy in the remote past. He reports that for several years, he was having recurrent episodes of pancreatitis and was treated extensively in [place]. He had multiple ERCP procedures. At one point, he had a large pseudocyst which had to be surgically drained. He had multiple pancreatic duct stents as well as lithotripsy of pancreatic duct stones performed at [facility]. This was all over 10 years ago. In recent years, he had been doing fairly well. He would occasionally have attacks in which he would have abdominal pain and vomiting for 1 or 2 days at most and would otherwise do well. However, now for about the past 3 weeks, he has had recurrent epigastric pain and vomiting and symptoms have been persistent. He has lost about 12 pounds over the past 3 weeks because he has been unable to keep anything down. He was admitted here just over a week ago. At that time, amylase and lipase levels were normal. EGD was unremarkable with unremarkable gastric biopsies and an MRI of the abdomen demonstrated pancreatic ductal dilation to 4.5 mm, but no focal pancreatic lesion identified. The patient had some brief symptomatic relief with IV Phenergan, but reports that as soon as he got home and this wore off, he started having vomiting again. He is readmitted due to the ongoing symptoms, inability to tolerate p.o. intake, and now significant weight loss. REVIEW OF SYSTEMS: Full review of systems including constitutional, head, eyes, ears, nose, throat, GI, , cardiovascular, respiratory, musculoskeletal, and neurologic systems is negative except as noted in the HPI. PAST MEDICAL HISTORY: BPH, diabetes, anxiety, vitamin B12 deficiency, GERD, asthma, hypertension, diverticulitis, IBS, chronic kidney disease, chronic recurrent pancreatitis, cholecystectomy, appendectomy, pancreatic duct stent, multiple procedures, all over 10 years ago. FAMILY HISTORY: His brother also had pancreatitis at an early age and has recurrent chronic pancreatitis. No family history of GI malignancy. SOCIAL HISTORY: No tobacco, alcohol, or drug use. ALLERGIES: CAFFEINE, CODEINE, AND PINEAPPLE. OUTPATIENT MEDICATIONS: 1. Aspirin 325 mg daily. 2. Vitamin B12 at 1000 mcg daily. 3. Famotidine 40 mg daily. 4. Folic acid 1 mg daily. 5. Lansoprazole 30 mg daily. 6. Phenergan p.r.n. 7. Ramipril 10 mg daily. 8. Thiamine 100 mg daily. 9. Creon tablets 12,000 units p.o. t.i.d. with meals (the patient was not able to fill this after it was prescribed last admission). PHYSICAL EXAMINATION: VITAL SIGNS: Temperature 97.4, pulse 59, blood pressure 155/85, 99% oxygen saturation on room air. GENERAL: Chronically ill-appearing 70-year-old man, nontoxic, lying in bed comfortably, in no acute distress. SKIN: No jaundice. No rashes were palpable. HEENT: Eyes, no scleral icterus. Extraocular movements intact. ENT, mucous membranes moist. No oral lesions. LYMPH: No submandibular or supraclavicular lymphadenopathy. THYROID: Nontender to palpation. HEART: Regular rate and rhythm. LUNGS: Clear to auscultation bilaterally. ABDOMEN: Bowel sounds hypoactive, but present. The abdomen is soft, tender to palpation in the epigastrium. No guarding or rebound tenderness. EXTREMITIES: No peripheral edema. VESSELS: Radial pulses 2+ bilaterally. NEUROLOGIC: Cranial nerves 2-12 intact bilaterally. No focal deficits. LABORATORY STUDIES: WBC 4.2, hemoglobin 11.7, MCV 101.0, platelets 125. Sodium 140, potassium 3.8, BUN 16, creatinine 0.82, glucose 103, calcium 7.9. LFTs all normal with total bilirubin 1.0, alkaline phosphatase 80, AST 19, ALT 17, albumin 4.2, lipase less than 4, amylase 29.0. CA-19-9 only 17. From 2017 admission, triglycerides were only 150. IMAGING STUDIES: Recent MRI of the abdomen from 10/20/2020 showed prior cholecystectomy, normal common bile duct to 5.8 mm, main pancreatic duct at the level of the body dilated to 4.5 mm with no definite visible focal lesion evident within the pancreas. ASSESSMENT AND PLAN: 1. Chronic recurrent pancreatitis. 2. Intractable vomiting. 3. Weight loss, 12 pounds over the past 3 weeks. 4. Pancreatic ductal dilation. Last admission, the plan had been to follow up as an outpatient and arrange for outpatient referral to a tertiary center for endoscopic ultrasound and possible ERCP. Indeed, I do think that is the best next step in evaluation. The patient does have significant pancreatic ductal dilation and with his prior history of pancreatic duct stricture and even pancreatic duct stones, I have high suspicion for recurrent stricture, which is likely contributing to his worsening symptomatology. He needs to have upper endoscopic ultrasound and depending on findings, very well may benefit from repeat ERCP with pancreatic duct stent placement or lithotripsy. We do not have that expertise here. I would recommend attempt at inpatient transfer to a tertiary center, try either [facility] in [place] or [facility]. In the meantime, continue with current supportive cares. The patient's laboratory studies are otherwise favorable at this time. Thank you for the consultation. Please call anytime with questions or concerns. Job ID: [id number]
[2020-10-27] MEDS: Sodium Chloride 0.9% 1,000 ML IV SCH ×2 (00:16→12:34)
[2020-10-27 05:26] LABS: #Eosinphils 0.3 thou/uL (0.0-0.7); #Lymphocytes 1.1 thou/uL (1.20-3.40); #Monocytes 0.2 thou/uL (0.11-0.59); #Neutrophils 2.1 thou/uL (1.40-6.50); %Basophils 0.2 % (0.0-1.0); %Eosinophils 7.3 % (0.0-10.0); %Lymphocytes 29.9 % (21.0-51.0); %Monocytes 6.1 % (0.0-10.0); %Neutrophils 56.5 % (42.0-75.0); Mean Corpuscular HGB CONC 34.5 g/dL (32.0-36.0); Mean Corpuscular Hemoglobin 34.8 pg (27.0-31.0); Mean Platelet Volume 6.5 fL (7.4-10.4); Platelet Count 129 thou/uL (130-400); RBC Distribution Width 11.8 % (11.5-14.5); Red Blood Cell (RBC) Count 3.44 mill/uL (4.70-6.10); White Blood Cell (WBC) Count 3.7 thou/uL (4.8-10.8)
[2020-10-27 05:40] LABS: Anion Gap 10 mmol/L (10-20); BUN (Urea Nitrogen) 10 mg/dL (8.4-25.7); Calc. Creatinine Clearance 67 mL/min (70-130); Calcium 7.8 mg/dL (7.8-10.44); Carbon Dioxide 26 mmol/L (23-31); Chloride 106 mmol/L (98-107); Glucose 94 mg/dL (80-115); Magnesium 1.7 mg/dL (1.6-2.6); Potassium 3.5 mmol/L (3.5-5.1); Sodium 138 mmol/L (136-145)
--- NOTE | 2020-10-27 08:55 | PDOC.HOSPP ---
- Subjective Encounter Date: 10/27/20 Encounter Time: 08:53 Subjective: Mr. Blakely was seen this morning in follow up of his chronic pancreatitis. He complains of a sharp pain that comes and goes in his epigastric region and may radiate to his back or shoulder. He rates it anywhere from 5-8/10. He associates nausea with the pain that also waxes and wanes. He says he is vomiting much less here with the help of the antiemetic medications. - Objective Vital Signs & Weight: Vital Signs (12 hours) Temp Pulse Resp BP Pulse Ox 10/27/20 08:00 97.5 F L 63 18 125/69 97 10/27/20 03:32 97.4 F L 52 L 14 144/78 H 96 10/26/20 23:25 97.5 F L 57 L 14 170/84 H 98 Weight Weight 52.481 kg I&O: 10/26/20 10/27/20 10/28/20 06:59 06:59 06:59 Intake Total 1200 1180 Output Total 1050 Balance 1200 130 Result Diagrams: 10/27/20 05:07 10/27/20 05:07 Additional Labs: Accuchecks 10/27/20 10/26/20 10/26/20 05:39 20:25 15:53 POC Glucose 86 125 H 87 10/26/20 11:23 POC Glucose 103 H Hospitalist ROS - Review of Systems Constitutional: denies: fever Respiratory: denies: cough, shortness of breath Cardiovascular: denies: chest pain, palpitations Gastrointestinal: reports: nausea, vomiting, abdominal pain (epigastric that radiates to his back and shoulder sometimes.). denies: diarrhea, constipation - Medication Medications: Active Medications Generic Name Dose Route Start Last Admin Trade Name Freq PRN Reason Stop Dose Admin Enoxaparin Sodium 40 mg 10/26/20 09:00 10/26/20 09:08 Enoxaparin Sodium 40 Mg/0.4 Ml Syringe SC 40 mg 0900 SRUTHI Administration Sodium Chloride 1,000 mls @ 75 mls/hr 10/25/20 20:00 10/27/20 00:16 Normal Saline 0.9% IV 1,000 mls .[id number] SRUTHI Administration Morphine Sulfate 2 mg 10/25/20 19:59 10/26/20 14:11 Morphine 2 Mg/Ml Vial SLOW IVP 2 mg Q2H PRN Administration Pain Ondansetron HCl 4 mg 10/25/20 19:42 10/26/20 22:02 Ondansetron Pf 4 Mg/2 Ml Vial IVP 4 mg Q6H PRN Administration Nausea/Vomiting Promethazine HCl 25 mg 10/25/20 19:42 10/26/20 06:01 Promethazine Hcl 25 Mg/Ml Vial IM/IV 25 mcg Q6H PRN Administration Nausea/Vomiting - Exam Eye: PERRL, anicteric sclera Heart: RRR, no murmur, no gallops, no rubs, normal peripheral pulses Respiratory: CTAB, no wheezes, no rales, no ronchi, normal chest expansion Gastrointestinal: soft, non-distended, normal bowel sounds, no palpable masses, no hepatomegaly, no splenomegaly, no guarding, no rigidity. negative: non- tender (slightly tender in the RLQ) Extremities: no edema Psychiatric: A&O x 3 Hosp A/P (1) Chronic pancreatitis Code(s): K86.1 - OTHER CHRONIC PANCREATITIS Status: Chronic Qualifiers: Pancreatitis type: unspecified pancreatitis type Qualified Code(s): K86.1 - Other chronic pancreatitis - Plan * Chronic pancreatitis- continue with GI recommendations. * Symptomatic relief with antiemetic medications. * Continue on clear liquid diet.
[2020-10-27] MEDS: Enoxaparin Sodium 40 MG/0.4 ML SYRINGE SC SCH (09:18)
[2020-10-27] MEDS: Promethazine HCl 25 MG/ML VIAL IM/IV PRN (11:37)
--- NOTE | 2020-10-27 13:29 | PDOC.HOSPP ---
- Subjective Encounter Date: 10/27/20 Encounter Time: 13:25 Subjective: Mr. Blakely was seen today in follow-up of chronic pancreatitis. He notes some continued nausea, but says he is hungry and wants to try to eat something. - Objective Vital Signs & Weight: Vital Signs (12 hours) Temp Pulse Resp BP Pulse Ox 10/27/20 08:48 97 10/27/20 08:00 97.5 F L 63 18 125/69 97 10/27/20 03:32 97.4 F L 52 L 14 144/78 H 96 Weight Weight 115 lb 11.2 oz I&O: 10/26/20 10/27/20 10/28/20 06:59 06:59 06:59 Intake Total 1200 1180 Output Total 1050 Balance 1200 130 Result Diagrams: 10/27/20 05:07 10/27/20 05:07 Additional Labs: Accuchecks 10/27/20 10/26/20 10/26/20 05:39 20:25 15:53 POC Glucose 86 125 H 87 Hospitalist ROS - Medication Medications: Active Medications Generic Name Dose Route Start Last Admin Trade Name Freq PRN Reason Stop Dose Admin Enoxaparin Sodium 40 mg 10/26/20 09:00 10/27/20 09:18 Enoxaparin Sodium 40 Mg/0.4 Ml Syringe SC 40 mg 0900 SRUTHI Administration Sodium Chloride 1,000 mls @ 75 mls/hr 10/25/20 20:00 10/27/20 00:16 Normal Saline 0.9% IV 1,000 mls .[id number] SRUTHI Administration Morphine Sulfate 2 mg 10/25/20 19:59 10/26/20 14:11 Morphine 2 Mg/Ml Vial SLOW IVP 2 mg Q2H PRN Administration Pain Ondansetron HCl 4 mg 10/25/20 19:42 10/26/20 22:02 Ondansetron Pf 4 Mg/2 Ml Vial IVP 4 mg Q6H PRN Administration Nausea/Vomiting Promethazine HCl 25 mg 10/25/20 19:42 10/27/20 11:37 Promethazine Hcl 25 Mg/Ml Vial IM/IV 1 ml Q6H PRN Administration Nausea/Vomiting - Exam Eye: PERRL, anicteric sclera Heart: RRR, no murmur, no gallops, no rubs, normal peripheral pulses Respiratory: CTAB, no wheezes, no rales, no ronchi, normal chest expansion Gastrointestinal: soft (+ mild epigastric tenderness no rebound or guarding), normal bowel sounds Extremities: no cyanosis, no edema Hosp A/P (1) Intractable nausea and vomiting Code(s): R11.2 - NAUSEA WITH VOMITING, UNSPECIFIED Status: Acute (2) Nausea & vomiting Code(s): R11.2 - NAUSEA WITH VOMITING, UNSPECIFIED Status: Acute Qualifiers: Vomiting type: unspecified Vomiting Intractability: intractable Qualified Code(s): R11.2 - Nausea with vomiting, unspecified (3) Chronic pancreatitis Code(s): K86.1 - OTHER CHRONIC PANCREATITIS Status: Chronic Qualifiers: Pancreatitis type: unspecified pancreatitis type Qualified Code(s): K86.1 - Other chronic pancreatitis (4) DM type 2 (diabetes mellitus, type 2) Status: Chronic Qualifiers: Diabetes mellitus complication status: without complication (5) Dyslipidemia Code(s): E78.5 - HYPERLIPIDEMIA, UNSPECIFIED Status: Chronic (6) Hypertension Code(s): I10 - ESSENTIAL (PRIMARY) HYPERTENSION Status: Chronic Qualifiers: Hypertension type: essential hypertension Qualified Code(s): I10 - Essential (primary) hypertension - Plan * Acute on chronic pancreatitis- will advance his diet to full liquids and continue IV Morphine and IV anti-emetics * Continue to monitor his electrolytes * Transfer to [facility] has been initiated
--- NOTE | 2020-10-27 19:00 | PDOC.DS.DS ---
Provider - Provider Date of Admission: 10/25/20 19:36 Date of Discharge: 10/27/20 Admitting Provider: Eliseo Zendejas MD Consultations: Gastroentrology Primary Care Physician: Stephanie Areco MD Course - Hospital Course Hospital Course: Mr. Blakely is a 70-year-old gentleman that has a history of chronic pancreatitis. He was recently admitted to our facility with an episode of an acute flare of the pancreatitis. He was treated and discharged home. He returns with recurrent symptoms. He says he has a history of chronic pancreatitis since he was a child. He says he has also had problems with his pancreatic duct. He says he has had pancreatic stones in the past and has had to have pancreatic stents placed. Given the fact that he has had several recurrent admissions where he has been stabilized and then has quickly recurrence of his symptoms it was felt that on this particular occasion he should be transferred to a higher level of care he may need ERCP with a pancreatogram where he may have the discovery of strictures in the pancreatic duct. This procedure is not available at our hospital and for this reason we pursue transfer to [facility]. Resuscitation Status: 10/25/20 19:39 Resuscitation Status Routine Resuscitation Status: FULL: Full Resuscitation - Labs Lab Results: 10/27/20 05:07 10/27/20 05:07 Abnormal Lab Results - Last 48 hrs 10/26/20 05:29: WBC 4.2 L, RBC 3.33 L, Hgb 11.7 L, Hct 33.8 L, MCV 101.0 H, MCH 35.3 H, Plt Count 125 L, MPV 6.6 L, Basophils % 2.4 H 10/26/20 07:07: Chloride 108 H 10/27/20 05:07: WBC 3.7 L, RBC 3.44 L, Hgb 12.0 L, Hct 34.7 L, MCV 101.0 H, MCH 34.8 H, Plt Count 129 L, MPV 6.5 L, Lymphocytes # 1.1 L - Physical Exam Vitals: Vital Signs (12 hours) Temp Pulse Resp BP Pulse Ox 10/27/20 16:00 97.3 F L 66 14 157/99 H 99 10/27/20 08:48 97 10/27/20 08:00 97.5 F L 63 18 125/69 97 Weight Admit Weight 115 lb 11.2 oz Weight 115 lb 11.2 oz Physical Exam: The patient was seen and examined on the day of discharge. Problem - Discharge Plan Assessment: COPD exacerbation Patient left AMA I called and cefdinir and steroid She notes having breathing treatments at home - Problem (1) Chronic pancreatitis Code(s): K86.1 - OTHER CHRONIC PANCREATITIS Status: Chronic Qualifiers: Pancreatitis type: unspecified pancreatitis type Qualified Code(s): K86.1 - Other chronic pancreatitis (2) Intractable nausea and vomiting Code(s): R11.2 - NAUSEA WITH VOMITING, UNSPECIFIED Status: Acute (3) Nausea & vomiting Code(s): R11.2 - NAUSEA WITH VOMITING, UNSPECIFIED Status: Acute Qualifiers: Vomiting type: unspecified Vomiting Intractability: intractable Qualified Code(s): R11.2 - Nausea with vomiting, unspecified (4) DM type 2 (diabetes mellitus, type 2) Status: Chronic Qualifiers: Diabetes mellitus complication status: without complication (5) Dyslipidemia Code(s): E78.5 - HYPERLIPIDEMIA, UNSPECIFIED Status: Chronic (6) Hypertension Code(s): I10 - ESSENTIAL (PRIMARY) HYPERTENSION Status: Chronic Qualifiers: Hypertension type: essential hypertension Qualified Code(s): I10 - Essential (primary) hypertension Plan - Discharge Medications Home Medications: Medication Instructions Recorded Confirmed Type Enoxaparin Sodium [Lovenox] 40 mg SC 0900 syringe 10/27/20 Rx Morphine 2 mg SLOW IVP Q2H PRN vial 10/27/20 Rx Ondansetron HCl/PF [Zofran] 4 mg IVP Q6H PRN vial 10/27/20 Rx Ondansetron [Zofran ODT] 4 mg PO Q6H PRN tab 10/27/20 Rx Promethazine HCl [Phenergan] 25 mg IM/IV Q6H PRN vial 10/27/20 Rx Allergies: alcohol Allergy (Verified 12/26/19 17:05) Only when ingested. States rubbing alcohol okay. caffeine Allergy (Verified 12/26/19 17:05) chocolate flavor Allergy (Verified 12/26/19 17:05) codeine Allergy (Verified 12/26/19 17:05) hydrocodone [From [place]] Allergy (Verified 01/12/21 22:33) pineapple Allergy (Verified 12/26/19 17:05) Specifically pineapple juice prochlorperazine [From Compazine] Allergy (Verified 12/26/19 17:05) atorvastatin [From Lipitor] Adverse Reaction (Intermediate, Verified 10/20/20 21:14) pt cannot remeber reaction but was told by primary to not take. - Discharge Instructions Activity:: Activity as Tolerated - Follow up Plan Referrals: Stephanie Arceo MD [Primary Care Provider] - Disposition: OTHER HOSPITAL IN Quality - Care Measures CORE MEASURES:: N/A
[2020-10-27 19:58] LABS: SARS-CoV-2 NAA Rapid Test Not Detected (NotDetected)
--- NOTE | 2020-10-27 20:21 | PRG ---
DATE OF SERVICE: 10/27/2020 SUBJECTIVE: Mr. Blakely is feeling better. He is tolerating full liquid diet. He has still been requiring some opioid pain medication, however. LABORATORY DATA: Hemoglobin is 12, platelets 129. IMPRESSION: Chronic recurrent pancreatitis. He has had repeat hospitalizations now three times in the last short interval. 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 He is clinically improving. However, each time he has gone home, he has a flare of his symptoms. Very tempting to initiate transfer for inpatient procedure in [place], however, in the setting of COVID, bed availability has been limited. It is high risk that he will just end up bouncing back should he have recurrent symptoms once he leaves again, and we would likely be back in the same boat. We will continue to hold him now for symptom control until we can follow through with transfer to the tertiary center. Job ID: [id number]
[2020-10-27] MEDS: Morphine 2 MG/ML VIAL SLOW IVP PRN (22:02)
[2020-10-27 22:04] VITALS: BP 163/81; TEMP 98.1
--- NOTE | 2020-10-28 13:48 | PQF ---
CLINICAL DOCUMENTATION CLARIFICATION FORM: Dear Dr. Andrzej Mendoza Date: 10-28-20 Please exercise your independent, professional judgment in responding to the clarification form. Clinical indicators are provided on the bottom of this form for your review. Please check appropriate box(es): [ X ] Protein Calorie Malnutrition: [ ] Mild [ X] Moderate [ ] Severe [ ] Other Malnutrition (please specify) [ ] Underweight without malnutrition [ ] Cachexia [ ] Other diagnosis [ ] Unable to determine For continuity of documentation, please document condition throughout progress notes and discharge summary. Thank You. To be completed by CDI/Coding staff for physician review: CLINICAL INDICATORS - SIGNS / SYMPTOMS / LABS / RESULTS AND LOCATION IN EMR . ED: * pancreatitis; N/V * Constant N/V since DC from hospital on Saturday * BP 189/101; 176/85 1.20 PN (Reji): says he lost about 12 pounds in the past few weeks. 1.20 Consult (Case): * ...lost about 12 pounds over past 3 weeks because he as been unable to keep anything down.....now with significant wt loss 1.21 Nutrition Therapy Assessment (LAW): * BMI 17 * moderate temporalis and pectoralis muscle wasting * moderate orbital and buccal fat pad wasting * 10% weight loss x 2-3 months * suggestive of moderate-severe malnutrition in the context of chronic illness RISK FACTORS / RESULTS AND LOCATION IN MR 1.19 H&P (Affram): *PMH: chronic pancreatitis; DM2; *acute on chronic pancreatitis TREATMENTS / RESULTS AND LOCATION IN MR 1.21 Nutrition Therapy Assessment (LAW): 1. Continue Full Liquid diet. When medically appropriate, ADAT to a Fat- Restricted diet. 2. Recommend Ensure Clear TID per pt preference. 3. Provide anti-emetic PRN. 4. Recommend pancreatic enzymes. . DC Summary (Reji): transferred to [facility] - may need ERCP w/ a pancreatogram where he may have the discovery of strictures in the pancreatic duct. CDS Signature: Nancie Grant RN, CCDS Phone #: [phone] [email or web address] This is a permanent part of the Medical Record [facility]
== END 2020-10-27 22:50 | disposition short-term general hospital (02) | DRG 439 ==
LOC: ERS 16:56 → SURG B 19:36
PROVIDERS: ADMIT Student in an Organized Health Care Education/Training Program; ATTEND Internal Medicine
PROC: 05HC33Z Insertion of Infusion Device into Left Basilic Vein, Percutaneous Approach (ICD-10-PCS; principal; 2020-10-26)
DX: K85.80 Other acute pancreatitis without necrosis or infection (principal); Z68.1 Body mass index [BMI] 19.9 or less, adult; E44.0 Moderate protein-calorie malnutrition; K86.1 Other chronic pancreatitis; E11.9 Type 2 diabetes mellitus without complications; E78.5 Hyperlipidemia, unspecified; R63.4 Abnormal weight loss; I10 Essential (primary) hypertension; J44.9 Chronic obstructive pulmonary disease, unspecified; Z91.02 Food additives allergy status; Z88.8 Allergy status to other drugs, medicaments and biological substances; Z91.018 Allergy to other foods; Z91.048 Other nonmedicinal substance allergy status; Z90.49 Acquired absence of other specified parts of digestive tract; Z79.4 Long term (current) use of insulin
CPT/HCPCS: 36415; 36416; 80048; 80053; 82150; 83690; 83735; 85025; 96374; 96375; J1650; J2270; J2405; J2550; U0002

== ENCOUNTER 2020-11-19 13:16 | Inpatient (IN) | payer MEDICARE, BC ==
[2020-11-19] MEDS ORDERED: Promethazine HCl 25 MG/ML VIAL ONE ×2 (13:31→17:41)
[2020-11-19 14:02] LABS: #Basophils 0.1 thou/uL (0.0-0.2); #Eosinphils 0.1 thou/uL (0.0-0.7); #Lymphocytes 0.9 thou/uL (1.20-3.40); #Monocytes 0.3 thou/uL (0.11-0.59); #Neutrophils 6.9 thou/uL (1.40-6.50); %Eosinophils 1.1 % (0.0-10.0); %Lymphocytes 11.3 % (21.0-51.0); %Neutrophils 82.5 % (42.0-75.0); Hemoglobin 16.3 g/dL (14.0-18.0); Mean Corpuscular HGB CONC 35.6 g/dL (32.0-36.0); Mean Corpuscular Hemoglobin 36.6 pg (27.0-31.0); Mean Platelet Volume 6.6 fL (7.4-10.4); Platelet Count 225 thou/uL (130-400); RBC Distribution Width 12.6 % (11.5-14.5); Red Blood Cell (RBC) Count 4.45 mill/uL (4.70-6.10); White Blood Cell (WBC) Count 8.3 thou/uL (4.8-10.8)
[2020-11-19] MEDS ORDERED: Morphine 4 MG/ML VIAL ONE (14:14)
[2020-11-19 14:21] LABS: ALT (SGPT) 9 U/L (8-55); AST (SGOT) 10 U/L (5-34); Albumin 4.3 g/dL (3.4-4.8); Alkaline Phosphatase 88 U/L (40-110); Anion Gap 18 mmol/L (10-20); BUN (Urea Nitrogen) 32 mg/dL (8.4-25.7); Bilirubin, Total 1.1 mg/dL (0.2-1.2); CK (CPK) 19 U/L (30-200); Calc. Creatinine Clearance 0 mL/min (70-130); Calcium 9.8 mg/dL (7.8-10.44); Carbon Dioxide 28 mmol/L (23-31); Chloride 95 mmol/L (98-107); Globulin 3.6 g/dL (2.4-3.5); Glucose 322 mg/dL (80-115); Lipase Less than 4 U/L (8-78); Potassium 4.8 mmol/L (3.5-5.1); Protein, Total 7.9 g/dL (5.8-8.1); Sodium 136 mmol/L (136-145)
--- NOTE | 2020-11-19 16:10 | CT ---
EXAM: ABDOMEN AND PELVIC CT SCAN WITH IV CONTRAST: 11/19/20 HISTORY: Abdominal pain. History of chronic pancreatitis. Pancreatic stent placement. COMPARISON: 10/18/20. FINDINGS: The lung bases appear clear. Possible small hiatal hernia. Status post cholecystectomy with mild dila tation of the common bile duct up to 1 cm. Interval pancreatic stent placement is noted extending fro m the head and neck junction region into the duodenum. There is some dilatation of the more distal pa ncreatic duct at the level of the fail and body junction. There is evidence for at least mid grade s tenosis of the proximal celiac artery, overall stable. Adrenal glands appear unremarkable. No evidenc e for renal calculus or acute obstruction. No free intraperitoneal fluid within the abdomen or pel vis. No evidence for abscess or significant adenopathy. Minimal focal urinary bladder wall thickenin g on the right side, nonspecific but this could possibly be related to some cystitis. Prostate gland enlargement. IMPRESSION: Placement of a pancreatic stent with some mild dilatation of the distal pancreatic duct in the region of the body and tail. No evidence for acute pancreatitis or pseudocyst. Dilatation of the common seferino e duct up to approximately 1 cm probably related to reservoir effect. Minimal focal thickening of the right urinary bladder wall, nonspecific, possibly cystitis. Prostate gland enlargement. POS: RRE
[2020-11-19 16:56] LABS: Bacteria/HPF None Seen HPF (None Seen); Bilirubin Negative (Negative); Blood, Urine 1+ (Negative); Clarity Clear (Clear); Glucose, Urine (Dipstick) Greater than 1000 mg/dL (Negative); Ketone, Urine 20 mg/dL (Negative); Leukocyte Negative Leu/uL (Negative); Nitrite Negative (Negative); Protein, Urine (Dipstick) 100 mg/dL (Neg-Trace); Specific Gravity, Urine 1.048 (1.002-1.036); Squamous Epithelial None Seen HPF (0-3); Urobilinogen Normal mg/dL (Less than 2); WBC/HPF 0-3 HPF (0-3); pH, Urine 6.5 (5.0-9.0)
--- NOTE | 2020-11-19 17:38 | PDOC.HHP ---
Hospitalist HPI Abdominal Pain History of Present Illness: 70 year old male c/o abdominal pain x4 days with history of chronic pancrea titis. Patient had a pancreatic stent placed at [facility]. He has been having abdominal pain and nausea/vomiting. He was seen by Dr. Pressley and he prescribed Reglan but the patient never picked the prescription. ED Course: Patient presented to ER with abdominal pain, intractable nausea and vomiting. CT of abdomen/pelvis showed pancreatic stent with mild dilatation of the distal pancreatic duct. No evidence for acute pancreatitis or pseudocyst. CT also showed prostate gland enlargement. Patient was given Phenergan, Morphine and 2L Normal Saline bolus. Labs show elevated BUN at 32, elevated glucose at 322, normal WBC. Allergies/Adverse Reactions: Allergy/AdvReac Type Severity Reaction Status Date / Time alcohol Allergy Verified 12/26/19 17:05 caffeine Allergy Verified 12/26/19 17:05 chocolate flavor Allergy Verified 12/26/19 17:05 codeine Allergy Verified 12/26/19 17:05 hydrocodone [From [place]] Allergy Verified 10/18/20 22:33 pineapple Allergy Verified 12/26/19 17:05 prochlorperazine Allergy Verified 12/26/19 17:05 [From Compazine] atorvastatin [From Lipitor] AdvReac Intermediate Verified 10/20/20 21:14 Home Medications: Medication Instructions Recorded Confirmed Type Enoxaparin Sodium [Lovenox] 40 mg SC 0900 syringe 10/27/20 Rx Morphine 2 mg SLOW IVP Q2H PRN vial 10/27/20 Rx Ondansetron HCl/PF [Zofran] 4 mg IVP Q6H PRN vial 10/27/20 Rx Ondansetron [Zofran ODT] 4 mg PO Q6H PRN tab 10/27/20 Rx Promethazine HCl [Phenergan] 25 mg IM/IV Q6H PRN vial 10/27/20 Rx Comments: aspirin oral tablet : Strength - 325 mg : ORAL Patient Dose: 325 mg Oral once a day. famotidine oral tablet : Strength - 40 mg : ORAL Patient Dose: 40 mg Oral once a day. ramipril capsule : Strength - 10 mg : ORAL Patient Dose: 10 mg Oral once a day. Prevacid capsule,delayed release(DR/EC) : Strength - 30 mg : ORAL Patient Dose: 30 mg Oral once a day. Phenergan oral tablet : Strength - 25 mg : ORAL Patient Dose: Unknown. traMADol tablet : Strength - 50 mg : ORAL Patient Dose: 50 mg Oral As Needed. Metformin tablet : Strength - 1000 mg :Oral BID Past History: PMHx: Chronic pancreatitis, Type 2 diabetes, H Pylori, TIA, GERD, HTN PSHx: Appendectomy, Pancreatic stent placement, Cholecystectomy, Tonsillectomy, Adenoidectomy, FHx: Mother - decreased - history of breast cancer, Lupus; Father - - Lung cancer Social: Patient denies smoking, drinking or drug use. Lives at home alone. Hospitalist HPI ROS Constitutional: denies: fever, chills, sweats, weakness, malaise Eyes: denies: pain, vision change, conjunctivae inflammation ENT: denies: ear pain, ear discharge, nose pain Respiratory: denies: cough, dry, shortness of breath, hemoptysis Cardiovascular: denies: chest pain, palpitations, orthopnea Gastrointestinal: reports: nausea, vomiting, abdominal pain. denies: diarrhea Genitourinary: denies: dysuria, frequency Musculoskeletal: denies: neck pain, shoulder pain, arm pain Skin: denies: rash, lesions Neurological: denies: weakness, numbness, incoordination, change in speech All other systems reviewed; all pertinent +/- noted in HPI/Subj Hospitalist Exam General Appearance: NAD, awake alert Eye: PERRL, anicteric sclera ENT: normocephalic atraumatic, no oropharyngeal lesions, dry oral mucosa Neck: supple, no lymphadenopathy Heart: RRR, no murmur, normal peripheral pulses Respiratory: CTAB, no wheezes Gastrointestinal: soft, non-distended, normal bowel sounds, tender to palpation Extremities: no edema Skin: normal turgor, no lesions Neurological: cranial nerve grossly intact, normal sensation to touch Musculoskeletal: normal tone, normal strength Psychiatric: normal affect, normal behavior, A&O x 3 Hospitalist Results Result Diagrams: 11/19/20 13:36 11/19/20 13:36 Lab results: Laboratory Last Values WBC 8.3 thou/uL (4.8-10.8) 11/19/20 13:36 RBC 4.45 mill/uL (4.70-6.10) L 11/19/20 13:36 Hgb 16.3 g/dL (14.0-18.0) 11/19/20 13:36 Hct 45.8 % (42.0-52.0) 11/19/20 13:36 MCV 103.0 fL (78.0-98.0) H 11/19/20 13:36 MCH 36.6 pg (27.0-31.0) H 11/19/20 13:36 MCHC 35.6 g/dL (32.0-36.0) 11/19/20 13:36 RDW 12.6 % (11.5-14.5) 11/19/20 13:36 Plt Count 225 thou/uL (130-400) 11/19/20 13:36 MPV 6.6 fL (7.4-10.4) L 11/19/20 13:36 Neutrophils % 82.5 % (42.0-75.0) H 11/19/20 13:36 Lymphocytes % 11.3 % (21.0-51.0) L 11/19/20 13:36 Monocytes % 4.0 % (0.0-10.0) 11/19/20 13:36 Eosinophils % 1.1 % (0.0-10.0) 11/19/20 13:36 Basophils % 1.0 % (0.0-1.0) 11/19/20 13:36 Neutrophils # 6.9 thou/uL (1.40-6.50) H 11/19/20 13:36 Lymphocytes # 0.9 thou/uL (1.20-3.40) L 11/19/20 13:36 Monocytes # 0.3 thou/uL (0.11-0.59) 11/19/20 13:36 Eosinophils # 0.1 thou/uL (0.0-0.7) 11/19/20 13:36 Basophils # 0.1 thou/uL (0.0-0.2) 11/19/20 13:36 Sodium 136 mmol/L (136-145) 11/19/20 13:36 Potassium 4.8 mmol/L (3.5-5.1) 11/19/20 13:36 Chloride 95 mmol/L (98-107) L 11/19/20 13:36 Carbon Dioxide 28 mmol/L (23-31) 11/19/20 13:36 Anion Gap 18 mmol/L (10-20) 11/19/20 13:36 BUN 32 mg/dL (8.4-25.7) H 11/19/20 13:36 Creatinine 1.08 mg/dL (0.7-1.3) 11/19/20 13:36 Estimated GFR (MDRD) 68 11/19/20 13:36 Glucose 322 mg/dL (80-115) H 11/19/20 13:36 Calcium 9.8 mg/dL (7.8-10.44) 11/19/20 13:36 Total Bilirubin 1.1 mg/dL (0.2-1.2) 11/19/20 13:36 AST 10 U/L (5-34) 11/19/20 13:36 ALT 9 U/L (8-55) 11/19/20 13:36 Alkaline Phosphatase 88 U/L (40-110) 11/19/20 13:36 Creatine Kinase 19 U/L (30-200) L 11/19/20 13:36 Serum Total Protein 7.9 g/dL (5.8-8.1) 11/19/20 13:36 Albumin 4.3 g/dL (3.4-4.8) 11/19/20 13:36 Globulin 3.6 g/dL (2.4-3.5) H 11/19/20 13:36 Albumin/Globulin Ratio 1.2 g/dL (1.2-2.2) 11/19/20 13:36 Lipase Less than 4 U/L (8-78) L 11/19/20 13:36 Urine Color Light-Yellow (Yellow) 11/19/20 16:31 Urine Clarity Clear (Clear) 11/19/20 16:31 Urine pH 6.5 (5.0-9.0) 11/19/20 16:31 Ur Specific Higgins 1.048 (1.002-1.036) H 11/19/20 16:31 Urine Protein 100 mg/dL (Neg-Trace) A 11/19/20 16:31 Urine Glucose (UA) Greater than 1000 mg/dL (Negative) A 11/19/20 16:31 Urine Ketones 20 mg/dL (Negative) A 11/19/20 16:31 Urine Blood 1+ (Negative) A 11/19/20 16:31 Urine Nitrite Negative (Negative) 11/19/20 16:31 Urine Bilirubin Negative (Negative) 11/19/20 16:31 Urine Urobilinogen Normal mg/dL (Less than 2) 11/19/20 16:31 Ur Leukocyte Esterase Negative Rudolph/uL (Negative) 11/19/20 16:31 Urine RBC 7-10 HPF (0-3) A 11/19/20 16:31 Urine WBC 0-3 HPF (0-3) 11/19/20 16:31 Ur Squamous Epith Cells None Seen HPF (0-3) 11/19/20 16:31 Urine Bacteria None Seen HPF (None Seen) 11/19/20 16:31 Hospitalist H&P A/P (1) Intractable nausea and vomiting Code(s): R11.2 - NAUSEA WITH VOMITING, UNSPECIFIED Status: Acute (2) Chronic pancreatitis Code(s): K86.1 - OTHER CHRONIC PANCREATITIS Status: Chronic Qualifiers: Pancreatitis type: unspecified pancreatitis type Qualified Code(s): K86.1 - Other chronic pancreatitis (3) Dehydration Code(s): E86.0 - DEHYDRATION Status: Acute (4) DM type 2 (diabetes mellitus, type 2) Status: Chronic Qualifiers: Diabetes mellitus complication status: without complication (5) History of Helicobacter pylori infection Code(s): Z86.19 - PERSONAL HISTORY OF OTHER INFECTIOUS AND PARASITIC DISEASES Status: Acute Plan: Patient is a 70 year old male with history of intractable nausea and vomiting, chronic pancreatitis with recent pancreatic stent placement, dehydration, Type 2 diabetes, History h pylori was present to ED for abdominal pain, nausea and vomiting. Intractable Nausea & Vomiting -Zofran PRN -NPO Chronic pancreatitis -Morphine PRN -Gastroenterology Consulted Dehydration -IV fluids Type 2 Diabetes - patient states he has been unable to tolerate prescribed Metformin due to GI intolerance, hasn't taken in >2 weeks. -Accucheck ACHS -Regular Sliding Scale History of H Pylori -Protonix 40mg IV BID Case discussed with Dr. Toussaint.
[2020-11-19] MEDS ORDERED: Dextrose 50% Abboject 50 ML SYRINGE SLOW IVP PRN (18:06)
[2020-11-19] MEDS ORDERED: Dextrose 5% in Water 1,000 ML IV PRN (18:06)
[2020-11-19] MEDS: Sodium Chloride 0.9% 1,000 ML IV SCH (22:03)
[2020-11-19] MEDS: Pantoprazole 40 MG VIAL IVP SCH (22:12)
[2020-11-19] MEDS: Morphine 2 MG/ML VIAL SLOW IVP PRN (22:13)
[2020-11-19] MEDS: Sodium Chloride 0.9% (PF) 10 ML VIAL FS PRN (22:14)
[2020-11-19] MEDS: HumaLOG 300 UNITS/3 ML VIAL SC PRN (22:24)
[2020-11-19] MEDS: Ondansetron PF 4 MG/2 ML Vial IVP PRN (22:39)
[2020-11-20 01:59] VITALS: BMI 17.2
[2020-11-20 04:25] LABS: SARS-CoV-2 PCR by NAA Not Detected (NotDetected)
[2020-11-20 05:52] LABS: ALT (SGPT) 10 U/L (8-55); AST (SGOT) 12 U/L (5-34); Albumin 3.1 g/dL (3.4-4.8); Alkaline Phosphatase 63 U/L (40-110); Anion Gap 12 mmol/L (10-20); BUN (Urea Nitrogen) 24 mg/dL (8.4-25.7); Bilirubin, Total 0.6 mg/dL (0.2-1.2); Calc. Creatinine Clearance 66 mL/min (70-130); Calcium 8.2 mg/dL (7.8-10.44); Carbon Dioxide 21 mmol/L (23-31); Chloride 108 mmol/L (98-107); Globulin 2.7 g/dL (2.4-3.5); Glucose 111 mg/dL (80-115); Potassium 4.4 mmol/L (3.5-5.1); Protein, Total 5.8 g/dL (5.8-8.1); Sodium 137 mmol/L (136-145)
[2020-11-20] MEDS: Morphine 2 MG/ML VIAL SLOW IVP PRN ×3 (06:16→20:25)
[2020-11-20] MEDS: Ondansetron PF 4 MG/2 ML Vial IVP PRN ×3 (06:17→20:25)
[2020-11-20] MEDS: Sodium Chloride 0.9% 1,000 ML IV SCH (08:03)
[2020-11-20] MEDS: Pantoprazole 40 MG VIAL IVP SCH ×2 (08:04→20:22)
[2020-11-20] MEDS ORDERED: FLU VACC QS2020-21(65YR UP)/PF 240 MCG/0.7 ML SYRINGE IM ONE (09:00)
--- NOTE | 2020-11-20 13:06 | CON ---
DATE OF CONSULTATION: 11/20/2020 REASON FOR CONSULTATION: Intractable nausea and vomiting, chronic pancreatitis. HISTORY OF PRESENT ILLNESS: Richmond Blakely is a 70-year-old man seen by my GI colleague, Dr. Nando Pressley. He has a complicated history of bouts of recurrent pancreatitis, now with chronic pancreatitis. Prior history is detailed in my previous consultation note from 10/27/2020. Briefly, he has had multiple admissions over the past several months for intractable nausea, vomiting, and abdominal pain. Imaging demonstrated some distal pancreatic ductal dilation and potential area of stricture. This was both CT and MRCP imaging. During his most recent admission in October, we actually got him transferred down to [facility] for endoscopic ultrasound and pancreatic duct stent placement. I do not have those reports immediately available. The patient reports that a pancreatic duct stent was placed, but he continued to have issues with symptoms and so one week later, he had a repeat procedure in which he believes the stent was exchanged and also had what sounds like an EUS guided celiac plexus block. He reports that he did very well afterward, but only for 2 to 3 days, and then the nausea and vomiting returned. He has had a rough week particularly rough two days prior to admission yesterday with intractable nonbloody emesis. His bowel movements have been normal. Abdominal pain basically stays in the epigastrium. Upon presentation, labs are really unremarkable with lipase less than 4, normal LFTs, normal CBC and CMP. Repeat CT imaging from admission yesterday shows pancreatic stent in place with some mild dilation of the pancreatic duct distally. The patient had been taking Phenergan and Zofran on an outpatient basis. He is not sure if he has ever tried Reglan before. He was given a prescription for this last week but was unable to fill it. REVIEW OF SYSTEMS: Full review of systems including constitutional, head, eyes, ears, nose, throat, GI, , cardiovascular, respiratory, musculoskeletal, and neurologic systems is negative except as noted in the HPI. PAST MEDICAL HISTORY: BPH, diabetes, anxiety, vitamin B12 deficiency, GERD, asthma, hypertension, diverticulitis, IBS, chronic kidney disease, chronic recurrent pancreatitis, cholecystectomy, appendectomy, pancreatic duct stent, placed in October 2020 at [facility] in [place]. FAMILY HISTORY: His brother also had pancreatitis at an early age and has recurrent chronic pancreatitis. Mother had breast cancer. Father had lung cancer. No family history of GI malignancies. SOCIAL HISTORY: No tobacco, alcohol, or drug use. ALLERGIES: CAFFEINE, PINEAPPLE, LIPITOR, COMPAZINE, HYDROCODONE, AND CODEINE. OUTPATIENT MEDICATIONS: 1. Aspirin 325 mg daily. 2. Famotidine 40 mg daily. 3. Ramipril 10 mg daily. 4. Prevacid 30 mg daily. 5. Phenergan 25 mg p.r.n. 6. Tramadol 50 mg p.r.n. 7. Zofran p.r.n. PHYSICAL EXAMINATION: VITAL SIGNS: Temperature 98.4, pulse 58, blood pressure 142/75, 99% oxygen saturation on room air. GENERAL: Malnourished appearing 70-year-old man, sitting up in bed, in mild to moderate distress from nausea and frustration. SKIN: No jaundice. No rashes were palpable. EYES: No scleral icterus. Extraocular movements intact. ENT: Mucous membranes moist. No oral lesions. LYMPH: No submandibular or supraclavicular lymphadenopathy. Thyroid nontender to palpation. HEART: Regular rate and rhythm. LUNGS: Clear to auscultation bilaterally. ABDOMEN: Nondistended. Bowel sounds are present. Tender to palpation throughout the abdomen, but no guarding or rebound tenderness. EXTREMITIES: No peripheral edema. VESSELS: Radial pulses 2+ bilaterally. NEURO: Cranial nerves 2 through 12 intact bilaterally. No focal deficits. LABORATORY STUDIES: WBC 8.3, hemoglobin 16.3, platelets 225. Sodium 137, potassium 4.4, BUN 24, creatinine 0.77, lipase less than 4, CK only 19. LFTs all normal with total bilirubin 0.6, alkaline phosphatase 63, AST 12, ALT 10, albumin 3.1. COVID PCR negative. Urinalysis showing 7 to 10 rbc's, 0 to 3 wbc's. IMAGING STUDIES: CT of the abdomen and pelvis demonstrates a pancreatic duct stent in place. There is mild dilation of the pancreatic duct distally. The patient is post cholecystectomy with 1 cm common bile duct likely representing reservoir effect. There is some minimal nonspecific thickening of the urinary bladder and at least mid grade celiac artery stenosis. ASSESSMENT AND PLAN: 1. Chronic pancreatitis. 2. Intractable nausea and vomiting. 3. Epigastric pain. 4. Recent pancreatic duct stent placement in October 2020. 5. Possible recent EUS-guided celiac plexus block, reported by the patient in recent weeks. This is a difficult situation, as the patient remains so symptomatic and has had significant weight loss. Unfortunately, his chronic pancreatitis pain did not have durable relief after what sounds like recent EUS-guided celiac plexus block and he is really not tolerating oral antiemetic therapy. Also, unfortunately, he really did not have much symptomatic relief after recent placement of this pancreatic duct stent, need to consider the possibility of stent migration or complications such as duodenal injury from a migrated stent. For today, we are going to trial him on IV Reglan 10 mg q.8 hours. He will continue to get pain control as needed. We will plan for diagnostic EGD tomorrow to evaluate that pancreatic duct stent. I will discuss with Dr. Pressley if there is an issue with the stent causing any problems or if it is felt the stent may be contributing to the discomfort, it could potentially be removed tomorrow. Thank you for the consultation. Please call anytime with questions or concerns. Job ID: [id number]
[2020-11-20] MEDS: Metoclopramide HCl 10 MG/2 ML VIAL IVP SCH ×2 (15:02→22:42)
--- NOTE | 2020-11-20 16:07 | PDOC.HOSPP ---
- Subjective Encounter Date: 11/20/20 Encounter Time: 12:00 Subjective: The patient currently still has some nausea. He has intermittent severe pain in his xiphoid process, appears to be brought on when he is talking too much. The patient reports history of chronic pancreatitis since he was 3 years old. He has had multiple pancreatic stents in the course of his life. He states he had a pancreatic stent three weeks ago on a Saturday at [facility]. He was discharged and the following Saturday he vomited 18 times. He was readmitted and underwent repeat ERCP with nerve block that upcoming Saturday. He was discharged two days later and improved for approximately two days. The following Saturday he states he saw Dr. Pressley due to intractable nausea and vomiting. He states his vomit was non-bloody. He was prescribed nausea medicine, but didn't have a chance to pick it up from the pharmacy He was readmitted with intractable vomiting. The patient states his vomiting occurs sporadically sometimes when he is just sitting in bed. He is very frustrated and tired of his poor quality of life, sometimes wishes it could juts end. Denies being depressed He is appalled that his pancreatic enzymes are normal, because normally he states it is over 3000. He states he took creon for years and eventually discontinued it. His brother of pancreatitis. States that he doesn't have cystic fibrosis to his knowledge - Objective Vital Signs & Weight: Vital Signs (12 hours) Temp Pulse Resp BP Pulse Ox 11/20/20 12:00 98.4 F 60 20 185/91 H 100 11/20/20 07:46 98.4 F 58 L 20 142/75 H 99 Weight Weight 112 lb 14.027 oz I&O: 11/19/20 11/20/20 11/21/20 06:59 06:59 06:59 Intake Total 700 Balance 700 Result Diagrams: 11/19/20 13:36 11/20/20 04:37 Additional Labs: Accuchecks 11/20/20 11/20/20 11/19/20 11:45 04:23 22:23 POC Glucose 114 H 103 H 245 H Hospitalist ROS - Review of Systems Constitutional: denies: fever, chills - Medication Medications: Active Medications Generic Name Dose Route Start Last Admin Trade Name Freq PRN Reason Stop Dose Admin Sodium Chloride 1,000 mls @ 75 mls/hr 11/19/20 18:15 11/20/20 08:03 Normal Saline 0.9% IV 1,000 mls .[id number] SRUTHI Administration Insulin Human Lispro 0 units 11/19/20 18:06 11/19/20 22:24 Humalog 300 Units/3 Ml Vial SC 4 unit .MODERATE SLIDING SC PRN Administration Moderate Correctional Scale Metoclopramide HCl 10 mg 11/20/20 14:00 11/20/20 15:02 Metoclopramide Hcl 10 Mg/2 Ml Vial IVP 10 mg Q8HR SRUTHI Administration Morphine Sulfate 2 mg 11/19/20 18:12 11/20/20 12:08 Morphine 2 Mg/Ml Vial SLOW IVP 2 mg Q4H PRN Administration Pain Ondansetron HCl 4 mg 11/19/20 18:06 11/20/20 11:31 Ondansetron Pf 4 Mg/2 Ml Vial IVP 4 mg Q6H PRN Administration Nausea/Vomiting Pantoprazole Sodium 40 mg 11/19/20 21:00 11/20/20 08:04 Pantoprazole 40 Mg Vial IVP 40 mg Q12HR SRUTHI Administration Sodium Chloride 10 ml 11/19/20 19:00 11/19/20 22:14 Sodium Chloride 0.9% (Pf) 10 Ml Vial FS 10 ml PRN PRN Administration RECONSTITUTION Sodium Chloride 10 ml 11/19/20 21:00 11/20/20 08:06 Flush - Normal Saline 10 Ml Syringe IVF 10 ml Q12HR SRUTHI Administration Hospitalist Exam Vitals: Vital Signs (12 hours) Temp Pulse Resp BP Pulse Ox 11/20/20 12:00 98.4 F 60 20 185/91 H 100 11/20/20 07:46 98.4 F 58 L 20 142/75 H 99 Weight Weight 112 lb 14.027 oz General Appearance: NAD, awake alert Eye: PERRL, anicteric sclera ENT: normocephalic atraumatic, no oropharyngeal lesions Neck: no JVD Heart: RRR, no murmur, no gallops, no rubs Respiratory: CTAB, no wheezes, no rales, no ronchi Gastrointestinal: soft, non-tender, non-distended, normal bowel sounds Gastrointestinal - other findings: tenderness in xiphoid process Extremities: no cyanosis, no clubbing, no edema Skin: normal turgor, no lesions, no rashes Neurological: cranial nerve grossly intact, normal sensation to touch, no weakness Hosp A/P - Plan CT abdomen: mild dilation of distal pancreatic duct in the region of the body and tail . Dilation of CBD up to 1 cm This is a 70 year old male with history of chronic pancreatitis with recent stent placement three weeks ago and pancreatic nerve block readmitted with recurrent nausea/vomiting #Intractable nausea/vomiting #History of pancreatitis s/p recent stent placement - GI was consulted, started patient on reglan. CT abdomen shows dilation of CBD and distal pancreatic duct, possibly reservoir effect. Will keep NPO at midnight for possible EGD and defer to Dr. Pressley about whether pancreatic stent needs to be removed if it is not working versus whether he needs another nerve block - continue IV fluids Prostate gland enlargement - noted on CT scan . Will bladder scan Hypertension - hold ramipril for now Dispo: convert to inpatient status given plan for possible EGD tomorrow
[2020-11-20] MEDS ORDERED: Labetalol HCl 100 MG/20 ML VIAL SLOW IVP PRN (17:08)
[2020-11-20] MEDS: Sodium Chloride 0.9% (PF) 10 ML VIAL FS PRN (20:22)
[2020-11-21] MEDS ORDERED: Morphine 2 MG/ML VIAL ONE (02:47)
[2020-11-21] MEDS ORDERED: Metoclopramide 10 MG/10 ML UDCUP ONE (04:40)
[2020-11-21] MEDS ORDERED: Ondansetron PF 4 MG/2 ML Vial ONE ×2 (08:08→13:19)
[2020-11-21] MEDS ORDERED: Scopolamine 1.5 mg/72 hour Patch TOP SCH (10:30)
[2020-11-21] MEDS ORDERED: Scopolamine 1.5 mg/72 hour Patch ONE (11:12)
--- NOTE | 2020-11-21 12:14 | OP ---
DATE OF PROCEDURE: 11/21/2020 PREPROCEDURE DIAGNOSES: 1. History of chronic pancreatitis. 2. History of interval stent placement in the pancreatic duct. 3. Readmitted for refractory nausea, vomiting. POSTPROCEDURE DIAGNOSES: 1. EGD notable for again a normal stomach except for some retained bile, less than 100 mL. 2. Normal duodenum with the stent coming out of the pancreatic duct appears appropriate. 3. Reflux esophagitis. RECOMMENDATIONS: 1. IV Reglan 10 q.8 scheduled. 2. Clear liquids as tolerated. 3. Image brain to rule out central process for nausea and vomiting. Previous abdominal imaging, evaluation for adrenal insufficiency, thyroid disease, all normal. 4. If symptoms persist, we will need to transfer back to [facility] to see if they want to do something about the pancreatic duct stent. We will try to communicate with their physicians later today. ANESTHESIA: TIVA. DESCRIPTION OF PROCEDURE: After the patient was informed of the risks, benefits, and possible complications of endoscopy including perforation, reaction to medication, and aspiration, informed consent was obtained. The patient was brought to endoscopy suite, where he was sedated in gradual fashion. Once he was comfortable, a bite block was placed in the incisural orifice. The endoscope was advanced through the esophagus, stomach, into second and third portions of the duodenum and slowly removed. There was good visualization of the mucosa. There was reflux esophagitis with erosions extending in a linear fashion up from the GE junction and a couple of different narrow tongues up to about long term through the esophagus. The mucosa was normal. There were no signs of Allie. The stomach was normal in forward and retroflexed views. The duodenum was normal up to third portion. The stents noted to be coming from the pancreatic duct. The scope was removed. The patient tolerated the procedure well. There were no complications. Job ID: [id number]
[2020-11-21] MEDS: Dextrose 5 % And 0.9 % NaCl 1,000 ML IV SCH (12:24)
[2020-11-21] MEDS ORDERED: Multivitamins, Adult 10 ML, Folic Acid 1 MG, Thiamine HCl 100 MG in Dextrose 5 %-0.45 %... IV SCH (13:00)
--- NOTE | 2020-11-21 13:16 | CT ---
Exam: Head CT without contrast HISTORY: Persistent nausea vomiting and dizziness. COMPARISON: 09/01/2017 FINDINGS: Hemorrhage: No intraparenchymal hemorrhage or extra-axial hematoma. Brain parenchyma: Cortical saravia-white matter differentiation is preserved. No mass effect or midline shift. Basilar cisterns are patent.Remote lacunar infarct involving the right caudate nucleus and right lentiform nucleus. Ventricular system: Ventricles and sulci are patent and symmetric. Calvarium: Intact. Sinuses and mastoid air cells: Adequate aeration. IMPRESSION: 1. No acute intracranial process 2. Remote right deep saravia matter structure lacunar infarcts
[2020-11-21] MEDS ORDERED: Metoclopramide HCl 10 MG/2 ML VIAL ONE (13:24)
[2020-11-21] MEDS: Metoclopramide HCl 10 MG/2 ML VIAL IVP SCH ×3 (13:42→21:22)
[2020-11-21] MEDS: Pantoprazole 40 MG VIAL IVP SCH ×2 (13:43→21:21)
--- NOTE | 2020-11-21 14:31 | PDOC.HOSPP ---
- Subjective Encounter Date: 11/21/20 Encounter Time: 12:00 Subjective: F/u: intractable nausea/vomiting The patient had endoscopy today which per Dr. Pressley just showed some reflux. The patient had two episodes of vomiting this morning prior to endoscopy. He states the reglan seems to have worked some He is hungry and asking for a diet - Objective Vital Signs & Weight: Vital Signs (12 hours) Temp Pulse Resp BP Pulse Ox 11/21/20 12:26 97.8 F 70 16 173/87 H 100 11/21/20 07:15 97.7 F 70 16 167/82 H 100 Weight Weight 112 lb 14.027 oz I&O: 11/20/20 11/21/20 11/22/20 06:59 06:59 06:59 Intake Total 700 900 Output Total 650 Balance 700 250 Result Diagrams: 11/19/20 13:36 11/20/20 04:37 Additional Labs: Accuchecks 11/21/20 11/21/20 11/20/20 12:31 04:11 20:37 POC Glucose 89 101 H 94 11/20/20 16:42 POC Glucose 88 Hospitalist ROS - Review of Systems Constitutional: denies: fever, chills - Medication Medications: Active Medications Generic Name Dose Route Start Last Admin Trade Name Freq PRN Reason Stop Dose Admin Dextrose/Sodium Chloride 1,000 mls @ 75 mls/hr 11/21/20 11:45 11/21/20 12:24 D5 0.9% Ns IV 1,000 mls .[id number] SRUTHI Administration Insulin Human Lispro 0 units 11/19/20 18:06 11/19/20 22:24 Humalog 300 Units/3 Ml Vial SC 4 unit .MODERATE SLIDING SC PRN Administration Moderate Correctional Scale Labetalol HCl 10 mg 11/20/20 17:08 11/20/20 17:52 Labetalol Hcl 100 Mg/20 Ml Vial SLOW IVP 2 ml Q4H PRN Administration SBP Greater Than 180 Metoclopramide HCl 10 mg 11/20/20 14:00 11/21/20 13:46 Metoclopramide Hcl 10 Mg/2 Ml Vial IVP 10 mg Q8HR SRUTHI Administration Morphine Sulfate 2 mg 11/19/20 18:12 11/20/20 20:25 Morphine 2 Mg/Ml Vial SLOW IVP 2 mg Q4H PRN Administration Pain Ondansetron HCl 4 mg 11/19/20 18:06 11/20/20 20:25 Ondansetron Pf 4 Mg/2 Ml Vial IVP 4 mg Q6H PRN Administration Nausea/Vomiting Pantoprazole Sodium 40 mg 11/19/20 21:00 11/21/20 13:43 Pantoprazole 40 Mg Vial IVP Not Given Q12HR SRUTHI Sodium Chloride 10 ml 11/19/20 19:00 11/20/20 20:22 Sodium Chloride 0.9% (Pf) 10 Ml Vial FS 10 ml PRN PRN Administration RECONSTITUTION Sodium Chloride 10 ml 11/19/20 21:00 11/21/20 13:45 Flush - Normal Saline 10 Ml Syringe IVF Not Given Q12HR [facility] Hospitalist Exam Vitals: Vital Signs (12 hours) Temp Pulse Resp BP Pulse Ox 11/21/20 12:26 97.8 F 70 16 173/87 H 100 11/21/20 07:15 97.7 F 70 16 167/82 H 100 Weight Weight 112 lb 14.027 oz General Appearance: NAD, awake alert Eye: PERRL, anicteric sclera ENT: normocephalic atraumatic, no oropharyngeal lesions Neck: no JVD Heart: RRR, no murmur, no gallops, no rubs Respiratory: CTAB, no wheezes, no rales, no ronchi Gastrointestinal: soft, non-tender, non-distended, normal bowel sounds Extremities: no cyanosis, no clubbing, no edema Skin: normal turgor, no lesions, no rashes Hosp A/P - Plan CT abdomen: mild dilation of distal pancreatic duct in the region of the body and tail . Dilation of CBD up to [address] head: remote lacunar infarct This is a 70 year old male with history of chronic pancreatitis with recent stent placement three weeks ago and pancreatic nerve block readmitted with recurrent nausea/vomiting #Intractable nausea/vomiting #History of pancreatitis s/p recent stent placement - GI was consulted, started patient on reglan. Continue for now. CT abdomen shows dilation of CBD and distal pancreatic duct, possibly reservoir effect. - he is s/p EGD today showing some reflux. Continue protonix. Dr. Pressley will discuss with [facility] about whether the stent needs to be removed or not . CT head done showed no acute abnormalities Prostate gland enlargement - noted on CT scan . Will bladder scan Hypertension - hold ramipril for now Remote stroke - noted on CT scan. Hold aspirin and statin given recurrent pancreatitis and GI discomfort Dispo: will monitor, possible consideration of removing stent
[2020-11-21] MEDS ORDERED: PROPOFOL 200 MG/20 ML VIAL ONE (14:49)
[2020-11-21] MEDS ORDERED: Lidocaine 1% PF 5 ML VIAL ONE (14:49)
[2020-11-21] MEDS ORDERED: Amitriptyline HCl 10 MG TAB PO SCH (21:00)
[2020-11-21] MEDS: Sodium Chloride 0.9% (PF) 10 ML VIAL FS PRN (21:21)
[2020-11-21] MEDS: Morphine 2 MG/ML VIAL SLOW IVP PRN (21:23)
[2020-11-21] MEDS: HumaLOG 300 UNITS/3 ML VIAL SC PRN (21:59)
[2020-11-22] MEDS: Dextrose 5 % And 0.9 % NaCl 1,000 ML IV SCH (01:47)
[2020-11-22] MEDS: Morphine 2 MG/ML VIAL SLOW IVP PRN (04:50)
[2020-11-22] MEDS: Metoclopramide HCl 10 MG/2 ML VIAL IVP SCH (05:25)
[2020-11-22] MEDS: HumaLOG 300 UNITS/3 ML VIAL SC PRN ×2 (05:27→12:03)
[2020-11-22] MEDS: Pantoprazole 40 MG VIAL IVP SCH (07:48)
[2020-11-22 10:49] LABS: Anion Gap 10 mmol/L (10-20); BUN (Urea Nitrogen) 16 mg/dL (8.4-25.7); Calc. Creatinine Clearance 59 mL/min (70-130); Calcium 7.5 mg/dL (7.8-10.44); Carbon Dioxide 24 mmol/L (23-31); Chloride 106 mmol/L (98-107); Glucose 294 mg/dL (80-115); Sodium 136 mmol/L (136-145)
[2020-11-22 13:46] VITALS: BP 134/78; TEMP 97.2
--- NOTE | 2020-11-22 16:46 | PQF ---
CLINICAL DOCUMENTATION CLARIFICATION FORM: Dear Dr. Sandi Mathur Date / Time: 11.22.20 @ 8857 Please exercise your independent, professional judgment in responding to the clarification form. Clinical indicators are provided on the bottom of this form for your review Please check appropriate box(es): [ X ] Protein Calorie Malnutrition: [ ] Mild [ X] Moderate [ ] Severe [ ] Other Malnutrition (please specify) [ ] Underweight without malnutrition [ ] Cachexia [ ] Other diagnosis [ ] Unable to determine For continuity of documentation, please document condition throughout progress notes and discharge summary. Thank You. To be completed by CDI/Coding staff for physician review: Present Clinical Indicators - Signs / Symptoms / Labs Results and Location in Medical Record [X ] Malnutrition Malnourished appearing (11.20.20 Consult Case) [X ] BMI of 17.2 BMI 17.2 (Food & Nutrition Services Assessment 11.22.20 LAW) Two or More of the Following ASPEN Criteria: [X ] Weight Loss -14% x 1 year (Food & Nutrition Services Assessment 11.22.20 LAW) [ X] Loss of Muscle Mass/ Loss subcutaneous Fat Moderate globalized muscle and fat wasting - (Food & Nutrition Services Assessment 11.22.20 LAW) Present Risk Factors Results and Location in Medical Record [X ] Chronic illness pancreatitis Chronic Pancreatitis (11.19.20 H&P [facility]) Present Treatments Results and Location in Medical Record [X ] Dietary consult Food & Nutrition Services Assessment (11.22.20 LAW) [X] Nutritional supplements 1. Recommend a CC(1999) diet, leaving off Heart Healthy to promote intake. 2. Recommend Glucerna BID to promote weight gain. 3. Provide bowel regimen PRN. (Food & Nutrition Services Assessment 11.22.20 LAW) CDS/Applied Mathematician Signature: Nancie Grant RN, CCDS Phone #: [phone] [email or web address] Date/Time: 11.22.20@ 1328 Moderate Malnutrition (in acute illness) Energy Intake: <75% of estimated energy requirement for > 7 days Weight Loss: 1-2%/1 week; 5%/ 1 month; 7.5%/3 months Other: mild body fat loss; mild muscle mass loss; mild fluid accumulation; Severe Malnutrition (in acute illness) Energy Intake: = 50% of estimated energy requirement for = 5 days Weight Loss: >2%/1 week; >5%/1 month; >7.5%/3 months Other: moderate body fat loss; moderate muscle mass loss; moderate- severe fluid accumulation; measurably reduced director law enforcement strength Moderate Malnutrition (in chronic illness) Energy Intake: <75% of estimated energy requirement for =1 month Weight Loss: 5%/1 month; 7.5%/3 months; 10%/6 months; 20%/1 year Other: mild body fat loss; mild muscle mass loss; mild fluid accumulation Severe Malnutrition (in chronic illness) Energy Intake: =75% of estimated energy requirement for =1 month Weight Loss: >5%/1 month; >7.5%/3 months; >10%/6 months; >20%/1 year Other: severe body fat loss; severe muscle mass loss; severe fluid accumulation; measurably reduced director law enforcement strength This is a permanent part of the Medical Record [facility]
--- NOTE | 2020-11-22 17:12 | PQF ---
CLINICAL DOCUMENTATION CLARIFICATION FORM: Dear Dr. Sandi Mathur Date / Time: 11.22.20 @ 6913 Please exercise your independent, professional judgment in responding to the clarification form. Clinical indicators are provided on the bottom of this form for your review Please check appropriate box(es): [ ] Intractable nausea/vomiting due to reflux [ ] Intractable nausea/vomiting due to chronic pancreatitis [ ] Intractable nausea/vomiting due pancreatic stent [ ] complication of stent [ ] not a complication of stent [ ] Other diagnosis [ X ] Unable to determine For continuity of documentation, please document condition throughout progress notes and discharge summary. Thank You. To be completed by CDI/Coding staff for physician review: Present Clinical Indicators - Signs / Symptoms / Labs Results and Location in Medical Record [X ] c/o intermittent abd pain that comes and goes on its own.nausea and non- bloody vomiting (. H&P [facility]) [X ] Intractable nausea and vomiting (. H&P [facility]) [X ] Dehydration (. H&P [facility]) Present Risk Factors Results and Location in Medical Record [X ] Chronic illness Chronic Pancreatitis and DM (. H&P [facility]) [X] Recent surgery Pancreatic stent placed roughly 3 wks ago (. H&P [facility]). Present Treatments Results and Location in Medical Record [X ] Medications given Phenergan, Morphine and 2L NS bolus (. H&P [facility]) [X] Radiology CT of ABD/Pelvis 11.19.20 Dilation of the CBD up to approximately 1cm probably r/t reservoir effectpossibly cystitis [X] GI Consult 11.20.20 Case CDS/Battery Builder Signature: Nancie Grant RN, CCDS Phone #: [phone] [email or web address] Date/Time: 11.22.20@ 3790 This is a permanent part of the Medical Record [facility]
--- NOTE | 2020-11-22 21:12 | PDOC.DS.DS ---
Provider Date of Admission: 11/20/20 16:16 Date of Discharge: 11/22/20 Admitting Provider: Ney Toussaint MD Consultations: Gastroentrology (Dr. Sahil Nicole) Primary Care Physician: Stephanie Arceo MD Course Hospital Course: Discharge Diagnoses: 1. Intractable nausea/vomiting possibly from chronic pancreatitis 2. History of stroke in the past Brief HPI: This is a 70 year old male with history of chronic pancreatitis who presented to the hospital with intractable nausea/vomiting shortly after he left the hospital three weeks prior. He had a pancreatic duct stent placed and is supposed to have it removed 6 weeks later. He presented to the ER and pancreatic enzymes were unremarkable, LFTS were normal. CT abdomen showed mild dilation of the distal pancreatic duct in the region of the body and tail and dilation of the CBD up to 1 cm. He was admitted for further workup. Hospital Course: Intractable nausea/vomiting: the patient had an EGD which apparently showed some mild reflux, but no ulcers or any significant pathology. I do not have access to the full endoscopy report. He was seen by GI and started on reglan TID. He was hydrated with IV fluids. CT head showed no acute pathology. THe patient had no further episodes of vomiting and tolerated a regular diet at the time of discharge. He also improved with amitryptyline 10 mg qhs and a scopolamine patch. He will be discharged with reglan, amitryptyline and scopolamine. He will f/u with [facility] as an outpatient. Pertinent Studies: CT abdomen: mild dilation of distal pancreatic duct in the region of the body and tail . Dilation of CBD up to [address] head: remote lacunar infarct Resuscitation Status: 11/19/20 18:06 Resuscitation Status Routine Co-Sign Provider: Resuscitation Status: FULL: Full Resuscitation Lab Results: 11/19/20 13:36 11/22/20 10:05 Abnormal Lab Results - Last 48 hrs 11/22/20 10:05: Calcium 7.5 L Vitals: Vital Signs (12 hours) Temp Pulse Resp BP Pulse Ox 11/22/20 13:40 97.2 F L 75 16 134/78 100 Weight Admit Weight 113 lb Weight 112 lb 14.027 oz Physical Exam: The patient was seen and examined on the day of discharge. 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 Plan Prescriptions: Amitriptyline HCl [Elavil] 10 mg PO HS #30 tab Pantoprazole [Protonix] 40 mg PO BID #60 tab Metoclopramide HCl [Reglan] 10 mg PO TID PRN #90 tab PRN Reason: Nausea Scopolamine [Transderm Scop] 1.5 mg TOP Q3D PRN #30 patch PRN Reason: Nausea Home Medications: Medication Instructions Recorded Confirmed Type Famotidine [Pepcid] 40 mg PO DAILY 11/20/20 11/20/20 History Lansoprazole [Prevacid] 30 mg PO DAILY 11/20/20 11/20/20 History Ramipril [Altace] 10 mg PO DAILY 11/20/20 11/20/20 History traMADol HCl [Tramadol HCl] 25 mg PO Q6HR PRN 11/20/20 11/20/20 History Amitriptyline HCl [Elavil] 10 mg PO HS #30 tab 11/22/20 Rx Metoclopramide HCl [Reglan] 10 mg PO TID PRN #90 tab 11/22/20 Rx Pantoprazole [Protonix] 40 mg PO BID #60 tab 11/22/20 Rx Scopolamine [Transderm Scop] 1.5 mg TOP Q3D PRN #30 patch 11/22/20 Rx Allergies: alcohol Allergy (Verified 11/20/20 02:18) Only when ingested. States rubbing alcohol okay. caffeine Allergy (Verified 11/20/20 02:18) chocolate flavor Allergy (Verified 11/20/20 02:18) codeine Allergy (Verified 11/20/20 02:18) hydrocodone [From [place]] Allergy (Verified 11/20/20 02:18) pineapple Allergy (Verified 11/20/20 02:18) Specifically pineapple juice prochlorperazine [From Compazine] Allergy (Verified 11/20/20 02:18) atorvastatin [From Lipitor] Adverse Reaction (Intermediate, Verified 11/20/20 02:18) pt cannot remeber reaction but was told by primary to not take. Discharge Instructions:: You presented with nausea and vomiting that was intractable. Take reglan 10 mg every 8 hours, but don't take this with phenergan since they can cause tardive dyskinesia/dystonic reactions or tremors. You can use scopolamine patch as well if this helps with your nausea. Take amitryptyline 10 mg nightly for nausea as well. Follow up with your [facility] doctor as an outpatient to have your pancreatic stent removed. You did have some reflux on your endoscopy. Take protonix 40 mg twice daily. Your endoscopy was otherwise essentially normal. If you develop uncontrollable body jerking or tremors, please stop your reglan. Activity:: Activity as Tolerated Nourishment:: Regular Diet Referrals: Saihl Nicole MD [Active] - Stephanie Arceo MD [Primary Care Provider] - Disposition: HOME Quality CORE MEASURES:: N/A
== END 2020-11-22 14:20 | disposition home or self-care (01) | DRG 439 ==
LOC: ERS 13:16 → T4-A 17:44 → OBSVTOIN 11-20 16:16
PROVIDERS: ADMIT Internal Medicine; ATTEND Internal Medicine
PROC: 0DJ08ZZ Inspection of Upper Intestinal Tract, Via Natural or Artificial Opening Endoscopic (ICD-10-PCS; principal; 2020-11-21)
DX: K86.1 Other chronic pancreatitis (principal); E44.0 Moderate protein-calorie malnutrition; Z68.1 Body mass index [BMI] 19.9 or less, adult; K21.00 Gastro-esophageal reflux disease with esophagitis, without bleeding; Z20.822 Contact with and (suspected) exposure to COVID-19; E86.0 Dehydration; F41.9 Anxiety disorder, unspecified; I12.9 Hypertensive chronic kidney disease with stage 1 through stage 4 chronic kidney disease, or unspecified chronic kidney disease; N18.9 Chronic kidney disease, unspecified; Z86.19 Personal history of other infectious and parasitic diseases; Z91.018 Allergy to other foods; Z88.5 Allergy status to narcotic agent; Z79.82 Long term (current) use of aspirin; Z90.49 Acquired absence of other specified parts of digestive tract; Z88.8 Allergy status to other drugs, medicaments and biological substances
CPT/HCPCS: 36415; 36416; 70450; 74177; 80048; 80053; 81003; 81015; 82550; 83690; 85025; 87635; 93005; 96361; 96365; 96375; 96376; C9113; G0378; J1815; J2270; J2405; J2550; J2704; J2765; J3411; J7042; Q9967; U0003; U0005

== ENCOUNTER 2020-12-10 19:36 | Emergency (ER) | payer MEDICARE, BC ==
[2020-12-10] MEDS ORDERED: Ondansetron PF 4 MG/2 ML Vial ONE (20:08)
[2020-12-10] MEDS ORDERED: Morphine 4 MG/ML VIAL ONE ×2 (20:08→22:12)
[2020-12-10 20:10] LABS: #Eosinphils 0.1 thou/uL (0.0-0.7); #Lymphocytes 0.6 thou/uL (1.20-3.40); #Monocytes 0.3 thou/uL (0.11-0.59); #Neutrophils 6.8 thou/uL (1.40-6.50); %Eosinophils 0.7 % (0.0-10.0); %Lymphocytes 8.3 % (21.0-51.0); %Monocytes 3.7 % (0.0-10.0); %Neutrophils 87.3 % (42.0-75.0); Hemoglobin 15.4 g/dL (14.0-18.0); Mean Platelet Volume 6.5 fL (7.4-10.4); Platelet Count 192 thou/uL (130-400); RBC Distribution Width 12.5 % (11.5-14.5); Red Blood Cell (RBC) Count 4.54 mill/uL (4.70-6.10); White Blood Cell (WBC) Count 7.7 thou/uL (4.8-10.8)
[2020-12-10 21:02] LABS: Albumin 4.7 g/dL (3.4-4.8)
[2020-12-10 21:03] LABS: Chloride 95 mmol/L (98-107); Sodium 139 mmol/L (136-145)
[2020-12-10 21:04] LABS: Calcium 9.6 mg/dL (7.8-10.44); Glucose 314 mg/dL (80-115)
[2020-12-10 21:05] LABS: Protein, Total 8.7 g/dL (5.8-8.1)
[2020-12-10 21:06] LABS: Anion Gap 22 mmol/L (10-20); Bilirubin, Total 1.1 mg/dL (0.2-1.2); Carbon Dioxide 27 mmol/L (23-31)
[2020-12-10 21:07] LABS: Alkaline Phosphatase 115 U/L (40-110)
[2020-12-10 21:08] LABS: Calc. Creatinine Clearance 0 mL/min (70-130)
[2020-12-10 21:09] LABS: BUN (Urea Nitrogen) 24 mg/dL (8.4-25.7)
[2020-12-10 21:10] LABS: ALT (SGPT) 16 U/L (8-55); AST (SGOT) 24 U/L (5-34)
[2020-12-10] MEDS ORDERED: Promethazine HCl 25 MG/ML VIAL ONE (21:33)
[2020-12-11 00:35] LABS: Anion Gap 14 mmol/L (10-20); BUN (Urea Nitrogen) 22 mg/dL (8.4-25.7); Calc. Creatinine Clearance 0 mL/min (70-130); Calcium 7.6 mg/dL (7.8-10.44); Carbon Dioxide 25 mmol/L (23-31); Chloride 106 mmol/L (98-107); Glucose 221 mg/dL (80-115); Potassium 4.8 mmol/L (3.5-5.1); Sodium 140 mmol/L (136-145)
[2020-12-11 00:50] LABS: SARS-CoV-2 NAA Rapid Test DETECTED (NotDetected)
== END 2020-12-11 04:00 | disposition short-term general hospital (02) ==
LOC: ERS 19:36
DX: K85.90 Acute pancreatitis without necrosis or infection, unspecified (principal); U07.1 COVID-19; E11.9 Type 2 diabetes mellitus without complications; Z86.73 Personal history of transient ischemic attack (TIA), and cerebral infarction without residual deficits; Z79.82 Long term (current) use of aspirin
CPT/HCPCS: 0240U; 71045; 80048; 80053; 82010; 83605; 83690; 84484; 85025; 93005; 96365; 96366; 96375; 96376; 99285; 36415; J2270; J2405; J2550